=== PATIENT | female | born 1965 | race Caucasian/White ===

== ENCOUNTER 2019-04-22 09:56 | Outpatient (CLI) | payer OTHER, SELFPAY ==
--- NOTE | 2019-04-22 | EST_ITS ---
Patient Info Name: Judy Ribera Age: 53 years : 1965 Gender: Female Ht: 65 in Wt: 130 lbs BSA: 1.65 m2 Technical Quality: Good Exam Date: 04/22/2019 11:03 AM [facility] Patient Status: Outpatient Admit Date: 04/22/2019 Staff Ordering Physician: Doris Pereira MD Digital Content Producer: Conchita Beard RCS Attending Provider: JULIETA HAQUE DO Referring Physician: Kelli FAIRBANKS; Exercise Technologist: Wanda Cisneros RDCS Exercise Physician: Julieta Haque DO Exam Type: CA stress echo Study Info Indications R55 - Syncope and collapse Treadmill exercise stress echocardiogram is performed. Summary 1. 1. Negative exercise stress test for ischemic ST changes by ECG criteria. 2. 2. Good functional capacity, achieving 10 METs of workload. 3. 3. Baseline hypertension. 4. 4. Appropriate HR response to exercise. 5. 5. Appropriate HR recovery at 1 minute post exercise. 6. 6. Negative stress echocardiogram for ischemia by wall motion analysis. 7. 7. Patient informed of the above results. Stress Echo Findings Left Ventricle Appropriate increase in LV endocardial thickening with systole. Appropriate augmentation of contractility with systole. No wall motion abnormality. Left Ventricle Normal LV systolic function, no wall motin abnormality. Protocol: Stress ECG Details Stage: REST Duration (min): 1 min : 22 sec Speed (mph): 0.0 Grade (%): 0 HR (bpm): 72 SBP (mmHg): 152 DBP (mmHg): 91 METS: --- Stage: REST Duration (min): 15 min : 9 sec Speed (mph): 0.0 Grade (%): 0 HR (bpm): 80 SBP (mmHg): 152 DBP (mmHg): 91 METS: --- Stage: STAGE 1 Duration (min): 1 min : 0 sec Speed (mph): 1.7 Grade (%): 10 HR (bpm): 90 SBP (mmHg): 152 DBP (mmHg): 91 METS: --- Stage: STAGE 1 Duration (min): 2 min : 0 sec Speed (mph): 1.7 Grade (%): 10 HR (bpm): 100 SBP (mmHg): 152 DBP (mmHg): 91 METS: --- Stage: STAGE 1 Duration (min): 3 min : 0 sec Speed (mph): 1.7 Grade (%): 10 HR (bpm): 108 SBP (mmHg): 186 DBP (mmHg): 106 METS: --- Stage: STAGE 2 Duration (min): 1 min : 0 sec Speed (mph): 2.5 Grade (%): 12 HR (bpm): 114 SBP (mmHg): 186 DBP (mmHg): 106 METS: --- Stage: STAGE 2 Duration (min): 2 min : 0 sec Speed (mph): 2.5 Grade (%): 12 HR (bpm): 131 SBP (mmHg): 182 DBP (mmHg): 114 METS: --- Stage: STAGE 2 Duration (min): 3 min : 0 sec Speed (mph): 2.5 Grade (%): 12 HR (bpm): 131 SBP (mmHg): 182 DBP (mmHg): 114 METS: --- Stage: STAGE 3 Duration (min): 1 min : 0 sec Speed (mph): 3.4 Grade (%): 14 HR (bpm): 141 SBP (mmHg): 182 DBP (mmHg): 114 METS: --- Stage: STAGE 3 Duration (min): 2 min : 0 sec Speed (mph): 3.4 Grade (%): 14 HR (bpm): 140 SBP (mmHg): 182 DBP (mmHg): 114 METS: --- Stage: STAGE 3 Duration (min):
== END 2019-04-22 09:57 | disposition home or self-care (01) ==
LOC: ANHCARD 09:58
PROVIDERS: PCP Family Medicine; Visit Provider Family Medicine
DX: R55 Syncope and collapse (principal); I10 Essential (primary) hypertension
CPT/HCPCS: 93351

== ENCOUNTER 2019-12-09 23:27 | Inpatient (IN) | payer OTHER, SELFPAY ==
--- NOTE | ~2019-12-09 | CT_ITS ---
EXAMINATION: CT abdomen pelvis w con DATE: 12/10/2019 00:56 INDICATION: Generalized abdominal pain TECHNIQUE: Computed tomography (CT) of the abdomen and pelvis was performed with 100 cc Omnipaque 350 intravenous contrast. The dose-length product was 380.03 mGy-cm. Automated exposure control and iter ative reconstruction technique were employed. COMPARISON: None. FINDINGS: There is free intraperitoneal air, suspicious for bowel perforation. There is free fluid in the abdomen and pelvis. There is mild fatty infiltration and small amount of extraluminal gas in the region of the fundus of the stomach. Small hiatal hernia. Fatty infiltration of the liver. Mild bili nataly dilatation. Small low-density lesion left hepatic lobe, most likely benign cyst or hemangioma. Th e spleen, pancreas, adrenal glands and kidneys are unremarkable. Colonic diverticulosis without evide nce for diverticulitis. Cardiomegaly. Dependent atelectasis. There is degenerative spondylosis of the lower thoracic and lumbar spine. IMPRESSION: 1. Free intraperitoneal air and gas, suspicious for perforated viscus. No definite perforation site n ot identified. Reviewed, dictated and finalized at location A. IMPRESSION: 1. Free intraperitoneal air and gas, suspicious for perforated viscus. No defin ite perforation site not identified.
--- NOTE | ~2019-12-09 | XR_ITS ---
EXAMINATION: XR UGI w esoph water soluble DATE: 12/12/2019 13:29 INDICATION: Perforated gastric ulcer in the fundus of the stomach status post repair TECHNIQUE: 220 cc of water-soluble contrast were injected through the indwelling nasogastric tube. Co nventional supine abdomen radiographs and fluoroscopy of the esophagus, stomach, and proximal small b owel were performed. Fluoroscopy exposure time was 1.0 minutes. The DAP for this procedure was 16.511 Gycm2. COMPARISON: CT, 12/10/2019 FINDINGS: The esophagus is not evaluated due to the indwelling nasogastric tube. There is no hiatal h ernia. There was a small amount of spontaneous gastroesophageal reflux around the tube. The stomach a nd proximal small bowel show normal folding patterns. No extravasated contrast is identified. Surgical dale are noted. IMPRESSION: 1. No evidence of contrast leak. Reviewed, dictated and finalized at location A.
--- NOTE | 2019-12-09 23:36 | ED.ALCOHOL ---
HPI - Alcohol General Chief Complaint: Abdominal Pain Stated Complaint: abd pAin History of Present Illness HPI narrative: Sudden severe, diffuse abdominal pain this evening. Associated with nausea. She has never had this pain before. She reports worsening of GERD symptoms over the past few weeks. No fever, diarrhea, constipation. Related Data Allergies Allergy/AdvReac Type Severity Reaction Status Date / Time Penicillins Allergy Unknown Vomiting Verified 11/14/19 16:09 Review of Systems Review of Systems: All systems reviewed & are unremarkable except as noted in HPI and below Constitutional: Constitutional: Denies fever(s) Cardiovascular: Cardiovascular: Reports chest pain Respiratory: Respiratory: Reports dyspnea Gastrointestinal: Gastrointestinal: Reports abdominal pain, Denies diarrhea, Reports nausea and Denies vomiting Genitourinary: Genitourinary: Denies hematuria and Denies dysuria Musculoskeletal: Musculoskeletal: Denies back pain Neurologic: Denies dizziness and Denies weakness [facility] Past Medical History Medical History Anxiety Arthritis of carpometacarpal (CMC) joint of left thumb BMI 22.0-22.9, adult BMI 23.0-23.9, adult Essential (primary) hypertension Insomnia Osteoarthritis of right knee Other chronic pain Tobacco use Surgical History Surgical History H/O elbow surgery 2011 H/O hysterectomy for benign disease 2008 Family History Family History Father Hypertension Social History Social History Smoking packs per day: 0.5 Smoking cigarettes per day: 10.0 Years smoked: 30 Smoking pack-years: 15.00 Smoking status: Current every day smoker Tobacco type: cigarettes Second hand tobacco smoke exposure: Yes Alcohol intake: current Drinks per week: 3 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 [employer] Exam Const: General: alert Orientation/consciousness: patient oriented x3 Other: mild distress, diaphoretic HENMT: Head: normal to inspection Resp: Effort & Inspection: normal respiratory effort Auscultation: clear to auscultation bilaterally Cardio: Rate: regular rate Rhythm: regular rhythm GI: GI Palp: Yes Soft to palpation, Yes Tenderness to palpation present (GI), Yes Guarding due to palpation present (GI) and No Rebound tenderness present Skin: General skin exam: normal color Neuro: General: patient oriented x3, moves all extremities, no focal motor deficits and CN's II-XI intact bilaterally Speech: normal speech Extrem: General: normal to inspection Course Vital Signs Vital signs: Vital Signs Temperature 37.1 C 12/09/19 23:38 Pulse Rate 110 H 12/09/19 23:38 Respiratory Rate 20 12/09/19 23:38 Blood Pressure 181/120 H 12/09/19 23:38 Pulse Oximetry 98 12/09/19 23:38 Temperature 37.1 C 12/09/19 23:38 Pulse Rate 104 H 12/10/19 02:37 Respiratory Rate 20 12/10/19 02:37 Blood Pressure 175/106 H 12/10/19 02:37 Pulse Oximetry 96 12/10/19 02:37 MDM - Alcohol MDM Narrative Medical decision making narrative: After [address] was finally read as free air from likely perforated viscous. Antibiotics ordered. Dr. Simons consulted and he will take her to surgery. Medical Records Attestation: I reviewed the patient's medical records. Lab Data Attestation: I reviewed the patient's lab results. Result diagrams: 12/09/19 23:50 12/09/19 23:50 Labs: Lab Results 12/09/19 12/09/19 12/09/19 Range/Units 23:50 23:50 23:50 WBC 17.4 H (4.5-10.0) K/mm3 RBC 5.42 H (4.2-5.4) M/mm3 Hgb 17.1 H (12.0-15.0) g/dL Hct 50.3 H (37.0-47.0) % MCV 92.8 (80-100) fl MCH 31.5 (26-34) pg MCHC 34.0 (32-36) g/dl RDW 12.6 (11.5-14.5) % Plt Count 481 H (150-375)
[2019-12-09 23:38] VITALS: BP 181/120; PULSE 110; RESP 20; TEMP 37.1; O2SAT 98
[2019-12-10] VITALS (17 sets, daily range): BP systolic 112–176; BP diastolic 57–110; PULSE 69–104; RESP 16–30; TEMP 36.4–37.4; O2SAT 92–100
[2019-12-10 00:15] LABS: Basophils Absolute Auto 0.1 K/mm3 (0.0-0.1); Basophils Percent Auto 0.6 % (0.2-1.2); Eosinophils Absolute Auto 0.4 K/mm3 (0-0.3); Eosinophils Percent Auto 2.2 % (0-4.4); Hematocrit 50.3 % (37.0-47.0); Hemoglobin 17.1 g/dL (12.0-15.0); Immature Granulocyte Absolute 0.06 K/mm3 (0.00-0.031); Immature Granulocyte Percent A 0.3 % (0-0.5); Lymphocytes Absolute Auto 3.25 K/mm3 (0.9-3.2); Lymphocytes Percent Auto 18.7 % (18.3-44.2); Mean Corpuscular Hemoglobin 31.5 pg (26-34); Mean Corpuscular Volume 92.8 fl (80-100); Mean Platelet Volume 10.1 fl (7.4-10.4); Monocytes Absolute Auto 0.6 K/mm3 (0.1-0.6); Monocytes Percent Auto 3.5 % (2.6-8.5); Neutrophils Percent Auto 74.7 % (45.5-73.1); Platelet Count Result 481 k/mm3 (150-375); Red Blood Count 5.42 M/mm3 (4.2-5.4); Red Cell Distribution Width 12.6 % (11.5-14.5); White Blood Count 17.4 K/mm3 (4.5-10.0)
[2019-12-10] MEDS: fentaNYL CITRATE INJ (*CRX) 100 MCG/2 ML VIAL 50 MCG IV PUSH (00:15)
[2019-12-10] MEDS: SODIUM CHLORIDE 0.9% IV 1,000 ML 999 ML IV CONT (00:16)
[2019-12-10] MEDS: PANTOPRAZOLE SODIUM IV 40 MG VIAL IV PUSH ×3 (00:16→20:41)
[2019-12-10 00:21] LABS: INR 0.9; Prothrombin Time 12.2 Seconds (11.1-14.7)
[2019-12-10 00:32] LABS: Alanine Aminotransferase 20 U/L (4-35); Albumin Level 5.1 g/dL (3.5-5.1); Alkaline Phosphatase 96 U/L (38-126); Anion Gap 13 mmol/L (8-16); Aspartate Amino Transferase 31 U/L (14-36); Bilirubin,Total 0.3 mg/dL (0.2-1.3); Blood Urea Nitrogen 11 mg/dL (7-17); Calcium 10.8 mg/dL (8.4-10.2); Carbon Dioxide 27 mmol/L (22-30); Chloride 105 mmol/L (98-107); Estimated CRCL calculation 66 ml/min; Estimated Glomerular Filt Rate > 60; Glucose 126 mg/dL (65-105); Lipase 179 U/L (23-300); Potassium 3.4 mmol/L (3.4-5.0); Sodium 145 mmol/L (137-145)
--- NOTE | 2019-12-10 00:35 | ECG_ITS ---
Measurements Intervals [place] Rate: 84 P: 39 [place]: 149 QRS: -9 QRSD: 105 T: 34 QT: 375 QTc: 445 Interpretive Statements SINUS RHYTHM INCOMPLETE RIGHT BUNDLE BRANCH BLOCK BASELINE ARTIFACT- I, II, III, AVR, AVL, AVF, V4-V6 BORDERLINE ECG Electronically Signed On 12-10-2019 7:39:42 CDT by Hector Rosa D.O.
[2019-12-10 00:44] LABS: Troponin I < 0.012 ng/mL (0.000-0.034)
[2019-12-10] MEDS: DICYCLOMINE HCL INJ 20 MG/2 ML VIAL IM (00:59)
[2019-12-10] MEDS: MORPHINE SULFATE (*CRX) 4 MG/ML INJ IV PUSH (01:18)
[2019-12-10 02:03] LABS: Add Urine Microscopic? NO; Appearance Urine Clear (Clear); Bilirubin Urine Negative (Negative); Blood Urine Negative (Negative); Color Urine Straw (Yellow); Glucose Urine UA Negative (Negative); Ketones Urine Negative (Negative); Leukocyte Esterase Ur Negative LEU/UL (Negative); Mucus Urine Rare /lpf; Nitrate Urine Negative (Negative); Protein Urine Negative (Negative); Specific Grav Ur 1.024 (1.001-1.035); Urobilinogen Urine Negative mg/dL (<2.0); WBC Urine 0-3 /hpf
--- NOTE | 2019-12-10 02:25 | WPDANESEPP ---
Anes - Eval Pre Procedure Procedure: exploratory laparotomy Date/Time: 12/10/19 02:25 Surgeon: Ronak Preop Diagnosis: Free air in abdomen Pre Op Diagnosis: abd pAin Patient Data Age: 53 Gender: F Height: 5 ft 6 in Weight: 75 kg Last Vital Signs Temp 98.7 F 12/09/19 23:38 Pulse 103 H 12/10/19 01:29 Resp 18 12/10/19 01:29 BP 176/108 H 12/10/19 01:29 Pulse Ox 96 12/10/19 01:29 Allergies Allergy/AdvReac Type Severity Reaction Status Date / Time Penicillins Allergy Unknown Vomiting Verified 11/14/19 16:09 Home Medications Medication Instructions Recorded Confirmed Type lisinopril 20 mg tablet 20 mg PO DAILY #90 tablet 09/30/19 Rx hydroxyzine HCl 25 mg tablet 25 mg PO BID PRN #60 tablet 11/14/19 11/14/19 Rx meloxicam 15 mg tablet 15 mg PO DAILY #30 tablet 11/14/19 11/14/19 Rx trazodone 50 mg tablet 25 mg PO .QHS #30 tablet 11/14/19 11/14/19 Rx Laboratory Tests 12/09/19 12/09/19 12/09/19 23:50 23:50 23:50 WBC 17.4 K/mm3 H K/mm3 (4.5-10.0) RBC 5.42 M/mm3 H M/mm3 (4.2-5.4) Hgb 17.1 g/dL H g/dL (12.0-15.0) Hct 50.3 % H % (37.0-47.0) MCV 92.8 fl fl (80-100) MCH 31.5 pg pg (26-34) MCHC 34.0 g/dl g/dl (32-36) RDW 12.6 % % (11.5-14.5) Plt Count 481 k/mm3 H k/mm3 (150-375) MPV 10.1 fl fl (7.4-10.4) Immature Gran % (Auto) 0.3 % % (0-0.5) Neut % (Auto) 74.7 % H % (45.5-73.1) Lymph % (Auto) 18.7 % % (18.3-44.2) [place] % (Auto) 3.5 % % (2.6-8.5) Eos % (Auto) 2.2 % % (0-4.4) Baso % (Auto) 0.6 % % (0.2-1.2) Lymph # (Auto) 3.25 K/mm3 H K/mm3 (0.9-3.2) [place] # (Auto) 0.6 K/mm3 K/mm3 (0.1-0.6) Eos # (Auto) 0.4 K/mm3 H K/mm3 (0-0.3) Baso # (Auto) 0.1 K/mm3 K/mm3 (0.0-0.1) Abs Immat Gran (auto) 0.06 K/mm3 H K/mm3 (0.00-0.031) Absolute Neuts (auto) 13.0 K/mm3 H K/mm3 (1.3-6.7) Absolute Nucleated RBC 0.0 K/mm3 K/mm3 (0.0-0.012) Nucleated RBC % 0.0 % % (0.0-0.2) PT 12.2 Seconds Seconds (11.1-14.7) INR 0.9 APTT 26.0 SECONDS SECONDS (22.3-36.8) Sodium 145 mmol/L mmol/L (137-145) Potassium 3.4 mmol/L mmol/L (3.4-5.0) Chloride 105 mmol/L mmol/L (98-107) Carbon Dioxide 27 mmol/L mmol/L (22-30) Anion Gap 13 mmol/L mmol/L (8-16) BUN 11 mg/dL mg/dL (7-17) Creatinine 0.80 mg/dL mg/dL (0.7-1.0) Estim Creat Clear Calc 66 ml/min ml/min Estimated GFR > 60 (59 - ) Glucose 126 mg/dL H mg/dL (65-105) Calcium 10.8 mg/dL H mg/dL (8.4-10.2) Total Bilirubin 0.3 mg/dL mg/dL (0.2-1.3) AST 31 U/L U/L (14-36) ALT 20 U/L U/L (4-35) Alkaline Phosphatase 96 U/L U/L (38-126) Troponin I < 0.012 ng/mL ng/mL (0.000-0.034) Total Protein 8.0 g/dL g/dL (6.3-8.2) Albumin 5.1 g/dL g/dL (3.5-5.1) Lipase 179 U/L U/L (23-300) Urine Color Urine Appearance Urine pH Ur Specific [place] Urine Protein Urine Glucose (UA) Urine Ketones Ur Blood (Man) Urine Nitrate Urine Bilirubin Urine Urobilinogen Leukocyte Esterase Rfl Urine WBC Urine Mucus 12/10/19 01:27 WBC RBC Hgb Hct MCV MCH MCHC RDW Plt Count MPV Immature Gran % (Auto) Neut % (Auto) Lymph % (Auto) [place] % (Auto) Eos % (Auto) Baso % (Auto) Lymph # (Auto) [place] # (Auto) Eos # (Auto) Baso # (Auto) Abs Immat Gran (auto) Absolute Neuts (auto) Absolute Nuc
--- NOTE | 2019-12-10 02:53 | PM.IMHP ---
H&P: HPI History of Present Illness Date/Time: 12/10/19 02:53 Chief complaint: abd pAin Narrative: Judy Ribera is a 53 year old female presenting to ED c/o acute, severe abd pain starting around 11 pm tonight. Pt reports pain is sharp, stabbing, constant, severe. Pt reports she has been having some heartburn sx over the last couple of wks including bloating, acid reflux. Review of Systems Constitutional: Constitutional: Denies anorexia, Denies chills, Denies fatigue, Denies fever(s), Denies headache(s), Denies lethargy, Denies malaise, Denies poor appetite, Denies weakness, Denies weight gain and Denies weight loss Eyes: Eyes: Denies no additional eye complaints ENT: Reports Normal hearing present Cardiovascular: Cardiovascular: Reports no additional cardiovascular complaints Respiratory: Respiratory: Reports no additional respiratory complaints Gastrointestinal: Gastrointestinal: Reports abdominal pain, Reports bloating, Denies change in bowel habits, Reports dyspepsia, Reports heartburn, Denies diarrhea, Denies nausea and Denies vomiting Genitourinary: Genitourinary: Reports no additional female genitourinary complaints Musculoskeletal: Musculoskeletal: Reports no additional musculoskeletal complaints Integumentary/Breasts: Skin/Breast: Reports system reviewed and no additional complaints, except as docu Neurologic: Reports system reviewed and no additional complaints, except as documented Psychiatric: Psychiatric: Reports no additional psychiatric complaints Endocrine: Endocrine: Reports no additional endocrine complaints Hematologic/Lymphatic: Hematologic/Lymphatic: Reports no additional hematologic/lymphatic complaints Allergic/Immunologic: Allergic/Immunologic: Reports no additional allergic/immunologic complaints PMFSH Past Medical History Medical History Anxiety Arthritis of carpometacarpal (CMC) joint of left thumb BMI 22.0-22.9, adult BMI 23.0-23.9, adult Essential (primary) hypertension Insomnia Osteoarthritis of right knee Other chronic pain Tobacco use Surgical History Surgical History H/O elbow surgery 2011 H/O hysterectomy for benign disease 2007 Family History Family History Father Hypertension Social History Social History Smoking packs per day: 0.5 Smoking cigarettes per day: 10.0 Years smoked: 30 Smoking pack-years: 15.00 Smoking status: Current every day smoker Tobacco type: cigarettes Second hand tobacco smoke exposure: Yes Alcohol intake: current Drinks per week: 3 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 [employer] Home Medications and Allergies Home Medications Medication Instructions Recorded Confirmed Type lisinopril 20 mg tablet 20 mg PO DAILY #90 tablet 09/30/19 Rx hydroxyzine HCl 25 mg tablet 25 mg PO BID PRN #60 tablet 11/14/19 11/14/19 Rx meloxicam 15 mg tablet 15 mg PO DAILY #30 tablet 11/14/19 11/14/19 Rx trazodone 50 mg tablet 25 mg PO .QHS #30 tablet 11/14/19 11/14/19 Rx Allergies Allergy/AdvReac Type Severity Reaction Status Date / Time Penicillins Allergy Unknown Vomiting Verified 11/14/19 16:09 Vital Signs Vital Signs - 24 hr 12/09/19 23:38 12/10/19 01:29 12/10/19 02:37 Temperature 37.1 C Pulse Rate 110 H 103 H 104 H Respiratory Rate 20 18 20 Blood Pressure 181/120 H 176/108 H 175/106 H Pulse Oximetry 98 96 96 Exam Const: General: cooperative, healthy appearing, alert, awake and acute distress moderate Nutritional Appearance: average body habitus Orientation/consciousness: oriented to person, oriented to place and oriented to time Limitations: no limitations HENMT: Head: normal to inspection, normocephalic and atraumatic Ears: hearing grossly normal bilaterally Mouth: Yes moist mucous membranes abnor
--- NOTE | 2019-12-10 02:57 | PC.NURSE ---
dr. salas @ bedside, awaiting or
--- NOTE | 2019-12-10 03:22 | WPDANESEFPP ---
Anes - Eval Final PreProcedure Day of Procedure 12/10/19 03:22 Patient weight: overweight Heart: regular rate and rhythm Lungs: decreased breath sounds Airway: Mallampati scale class II Neurological: alert and oriented Last oral intake: >/= 8 hours ASA classification: III Emergent: no Anesthetic plan: proceed Anesthesia type and monitoring: general Informed Consent: The patient's anesthetic plan and its attendant risks and benefits were discussed with the patient/family/POA. Questions were solicited and answers provided to the satisfaction of the patient/family/POA.
[2019-12-10] MEDS: metroNIDAZOLE 500 MG/ISO 100ML 500 MG/100 ML BAG 100 MG IVPB ×4 (03:37→21:01)
[2019-12-10] MEDS: LACTATED RINGERS 1,000 ML 30 ML IV CONT (04:18)
--- NOTE | 2019-12-10 04:18 | P.OP_ITS ---
Procedure Note - Detailed Date of procedure: 12/10/19 Pre-op diagnosis: Perforated Abdominal Viscous Post-op diagnosis: other (Perforated gastric ulcer) Procedure performed: Exploratory laparotomy, repair of perforated gastric ulcer with omental patch Description of procedure: The patient was taken to the operating room and placed in the supine position. After adequate induction of general anesthesia, the patient was prepped and draped in the normal sterile fashion. A time-out was then done to verify the patient's identity, as well as the procedure being performed. I began by making an upper midline incision. This incision was take n down into the peritoneal cavity. Upon entering the peritoneal cavity, there was noted to be a hager of air as well as what looked to be gastric succus. After this was suctioned out, I began examining the upper abdomen. I was able to free up the stomach after some dissection. I was able to locate a perforation in the fundus of the stomach anteriorly. Once the perforation was identified, I primarily closed the perforation with interrupted 3 0 silk sutures. I then created a tongue of omentum and placed this omental patch over the area of the perforation. I then was able to palpate the NG tube and had this placed near the area of the perforation. We then placed approximately 50 cc of normal saline with methylene blue into the NG tube. The stomach was noted to be distended and no leakage of the methylene blue was noted. At this point this fluid was suctioned back out through the NG tube. I then copiously irrigated the abdomen, examination revealed no other pathology. I then closed the fascia with looped 0 PDS suture. The skin was then closed with skin dale. The patient tolerated the procedure well and was extubated in the operating room postoperatively. She will be sent to the recovery room in stable condition. Implants: None Anesthesia: GETA Surgeon: Ania Simons MD Estimated blood loss (mL): 10 Drains: No Packing: No Pathology: none sent Complications: No immediate complications Condition: stable Disposition: PACU Findings: Perforated gastric ulcer
[2019-12-10] MEDS: fentaNYL CITRATE INJ (*CRX) 100 MCG/2 ML VIAL 25 MCG IV PUSH ×7 (04:22→05:15)
--- NOTE | 2019-12-10 04:44 | SUR.PHASEI ---
0418; PT INTO PACU PER BED. STARTING TO MOAN. ORAL AIRWAY REMOVED UPON ARRIVAL. HOB ELEVATED 30 DEGREES. KNEES FLEXED 15 DEGREES. PT C/O EXTREME PAIN. RUBBING ABDOMEN. MARY KAY FRENCH GIVING IV FENTANYL. NG TAPED AT 65 ADAIR, CONFIRMED BY DR MASON IN OR PER MARY KAY FRENCH. PLACED NG TO CONTINUOUS LOW WALL SUCTION. 0445; PT RESTING QUIETLY NOW. ABLE TO DOZE IN INTERVALS.
--- NOTE | 2019-12-10 05:24 | SUR.PHASEI ---
PT ABLE TO DOZE INTERMITTENTLY. STATES PAIN MODERATE TO SEVERE, COMES AND GOES . PT FLACC OF 0. LOOKS MUCH MORE COMFORTABLE. ABDOMEN REMAINS SOFT. LESS GUARDING. HOB AT 30 DEGREES. RESP EVEN UNLABORED. REPORT FAXED TO [facility].
--- NOTE | 2019-12-10 06:08 | ADMGEN ---
This patient, Judy Ribera, was admitted to Medical Room 347-. Patient/family oriented to hospital policies and general routines including ID bracelet, bed and alarms, visiting hours, pain management, procedures, bathroom and other care routines, personal items, smoking policy, room service/diet, and visiting hours. Valuables list has been completed. Information on how to activate the Rapid Response Team has been discussed. Patient/Family are encouraged to report perceived risks to care and to ask questions if they do not understand what they are told or what they should do.
[2019-12-10 07:53] LABS: Anion Gap 7 mmol/L (8-16); Blood Urea Nitrogen 12 mg/dL (7-17); Calcium 8.7 mg/dL (8.4-10.2); Carbon Dioxide 27 mmol/L (22-30); Chloride 106 mmol/L (98-107); Estimated CRCL calculation 75 ml/min; Estimated Glomerular Filt Rate > 60; Glucose 134 mg/dL (65-105); Potassium 3.9 mmol/L (3.4-5.0); Sodium 140 mmol/L (137-145)
[2019-12-10 08:00] LABS: Hemoglobin 13.1 g/dL (12.0-15.0); Mean Corpuscular HGB Conc 33.6 g/dl (32-36); Mean Corpuscular Hemoglobin 30.9 pg (26-34); Mean Platelet Volume 9.9 fl (7.4-10.4); Platelet Count Result 348 k/mm3 (150-375); Red Blood Count 4.24 M/mm3 (4.2-5.4); Red Cell Distribution Width 12.3 % (11.5-14.5); White Blood Count 17.8 K/mm3 (4.5-10.0)
[2019-12-10] MEDS: MORPHINE SULFATE (*CRX) 2 MG/ML INJ IV PUSH ×4 (08:07→21:32)
[2019-12-10] MEDS: LACTATED RINGERS 1,000 ML 100 ML IV CONT ×2 (08:18→22:04)
--- NOTE | 2019-12-10 12:39 | PC.NURSE ---
Call placed to Pharmacy for the 2nd time about meds not being in the pixsis and having to override to pull out meds.
--- NOTE | 2019-12-10 22:00 | PC.NURSE ---
Call placed to pharmacy about meds not being in the pixsis and having to override to pull out meds.
[2019-12-11] VITALS (9 sets, daily range): BP systolic 165–181; BP diastolic 80–101; PULSE 67–90; RESP 14–18; TEMP 36.5–37.2; O2SAT 92–98
[2019-12-11] MEDS: MORPHINE SULFATE (*CRX) 2 MG/ML INJ IV PUSH ×4 (01:44→21:10)
[2019-12-11] MEDS: metroNIDAZOLE 500 MG/ISO 100ML 500 MG/100 ML BAG 100 MG IVPB ×4 (04:46→21:07)
[2019-12-11 05:34] LABS: Hematocrit 35.2 % (37.0-47.0); Hemoglobin 11.7 g/dL (12.0-15.0); Mean Corpuscular HGB Conc 33.2 g/dl (32-36); Mean Corpuscular Hemoglobin 30.9 pg (26-34); Mean Corpuscular Volume 92.9 fl (80-100); Mean Platelet Volume 9.9 fl (7.4-10.4); Platelet Count Result 298 k/mm3 (150-375); Red Blood Count 3.79 M/mm3 (4.2-5.4); Red Cell Distribution Width 12.5 % (11.5-14.5); White Blood Count 11.1 K/mm3 (4.5-10.0)
[2019-12-11 06:04] LABS: Anion Gap 5 mmol/L (8-16); Blood Urea Nitrogen 18 mg/dL (7-17); Calcium 8.6 mg/dL (8.4-10.2); Carbon Dioxide 28 mmol/L (22-30); Chloride 106 mmol/L (98-107); Estimated CRCL calculation 66 ml/min; Estimated Glomerular Filt Rate > 60; Glucose 95 mg/dL (65-105); Potassium 3.6 mmol/L (3.4-5.0); Sodium 139 mmol/L (137-145)
--- NOTE | 2019-12-11 08:51 | WPDANESPN ---
Anes - Prog Note Post-Op Date/Time: 12/11/19 08:51 Cardiovascular status: normal Respiratory status: normal Airway patency: baseline Mental status: baseline Post-Op hydration status: normal (NG in place) Vital Signs: Last Vital Signs Temp 36.5 C 12/11/19 05:29 Pulse 78 12/11/19 05:29 Resp 16 12/11/19 05:29 BP 176/87 H 12/11/19 05:29 Pulse Ox 98 12/11/19 05:29 Pain Score (VAS): 3 I/O: Intake & Output 12/10/19 12/11/19 12/11/19 23:59 07:59 15:59 Intake Total 906 833 Output Total 70 190 Balance 836 643 Laboratory Tests 12/11/19 05:00 12/11/19 05:00 12/11/19 12/11/19 05:00 05:00 WBC 11.1 H RBC 3.79 L Hgb 11.7 L Hct 35.2 L MCV 92.9 MCH 30.9 MCHC 33.2 RDW 12.5 Plt Count 298 MPV 9.9 Sodium 139 Potassium 3.6 Chloride 106 Carbon Dioxide 28 Anion Gap 5 L BUN 18 H Creatinine 0.80 Estim Creat Clear Calc 66 Estimated GFR > 60 Glucose 95 Calcium 8.6 Patient Feedback: Patient satisfied with anesthetic care.
[2019-12-11] MEDS: PANTOPRAZOLE SODIUM IV 40 MG VIAL IV PUSH ×2 (08:54→20:52)
[2019-12-11] MEDS: LACTATED RINGERS 1,000 ML 100 ML IV CONT ×2 (10:49→23:17)
[2019-12-11] MEDS: hydrALAZINE HCL 20 MG/ML VIAL 10 MG IV PUSH ×2 (10:50→16:59)
--- NOTE | 2019-12-11 11:38 | PM.PNGS ---
Progress Note: A&P Assessment and Plan (1) Perforated gastric ulcer: Code(s): K25.5 - Chronic or unspecified gastric ulcer with perforation Status: Acute Assessment and Plan: doing well, cont NG decompression, bowel rest, cont PPI, abx, dc ocasio, OOB/IS (2) Essential hypertension: Code(s): I10 - Essential (primary) hypertension Status: Acute Assessment and Plan: start Hydralysine prn Subjective Subjective Date/Time Seen: 12/11/19 11:38 feels better, some moderate incisional soreness Review of Systems Constitutional: Constitutional: Denies chills, Denies fever(s) and Reports weakness Cardiovascular: Cardiovascular: Reports no additional cardiovascular complaints Respiratory: Respiratory: Reports no additional respiratory complaints Gastrointestinal: Gastrointestinal: Reports abdominal pain, Denies nausea and Denies vomiting Exam Const: General: cooperative, comfortable and no acute distress Resp: Auscultation: clear to auscultation bilaterally Cardio: Rate: regular rate Rhythm: regular rhythm GI: Other: soft, sl dist, kalpesh TTP, incision C/D/I Objective Data Vital Signs Vital Signs: Vital Signs - 24 hr 12/10/19 12:03 12/10/19 17:56 12/10/19 20:03 Temperature 36.7 C 37.4 C 36.4 C Pulse Rate 74 78 69 Respiratory Rate 16 18 18 Blood Pressure 133/74 148/89 H 137/70 Pulse Oximetry 99 98 99 12/11/19 00:03 12/11/19 05:29 12/11/19 10:00 Temperature 37.0 C 36.5 C 36.6 C Pulse Rate 67 78 76 Respiratory Rate 16 16 18 Blood Pressure 168/81 H 176/87 H 181/101 H Pulse Oximetry 92 98 97 Intake/Output Intake/Output: Intake & Output 12/08/19 12/09/19 12/10/19 12/11/19 23:59 23:59 23:59 23:59 Intake Total 2746 1350 Output Total 215 1040 Balance 2531 310 Meds/Results Medications: Active Medications Generic Name Dose Route Start Last Admin Trade Name Freq PRN Reason Stop Dose Admin Hydralazine HCl 10 mg 12/11/19 10:32 12/11/19 10:50 Hydralazine Hcl 20 Mg/Ml Vial IV PUSH 10 mg Q6H PRN Administration Blood Pressure - High Levofloxacin/Dextrose 750 mg in 150 mls @ 100 mls/hr 12/11/19 03:00 12/11/19 04:36 Levaquin 750 Mg/D5w 150 Ml IVPB Infused Q24H ROBERTO Infusion Metronidazole 500 mg in 100 mls @ 100 mls/hr 12/10/19 10:00 12/11/19 10:07 Flagyl 500 Mg/Iso Soln 100 Ml IVPB Infused Q6H ROBERTO Infusion Lactated Ringer's 1,000 mls @ 100 mls/hr 12/10/19 12:35 12/11/19 10:49 Lr - Lactated Ringers Iv IV CONT 100 mls/hr .Q10H ROBERTO Administration Morphine Sulfate 2 mg 12/10/19 12:32 12/11/19 09:55 Morphine Sulfate (*Crx) 2 Mg/Ml Inj IV PUSH 2 mg Q4H PRN Administration Pain Rated 7-10 Ondansetron HCl 4 mg 12/10/19 12:32 Ondansetron Inj 4 Mg/2 Ml Vial IV PUSH Q4H PRN Nausea And Vomiting Pantoprazole Sodium 40 mg 12/10/19 09:00 12/11/19 08:54 Pantoprazole Sodium Iv 40 Mg Vial IV PUSH 40 mg Q12HR ROBERTO Administration Radiology Results: ITS Impressions Abdomen/Pelvis CT 12/10/19 08:15 IMPRESSION: 1. Free intraperitoneal air and gas, suspicious for perforated viscus. No definite perforation site not identified. Labs Labs: Laboratory Results - last 24 hr 12/11/19 12/11/19 05:00 05:00 WBC 11.1 H RBC 3.79 L Hgb 11.7 L Hct 35.2 L MCV 92.9 MCH 30.9 MCHC 33.2 RDW 12.5 Plt Count 298 MPV 9.9 Sodium 139 Potassium 3.6 Chloride 106 Carbon Dioxide 28 Anion Gap 5 L BUN 18 H Creatinine 0.80 Estim Creat Clear Calc 66 Estimated GFR > 60 Glucose 95 Calcium 8.6
[2019-12-11] MEDS: ONDANSETRON INJ 4 MG/2 ML VIAL IV PUSH (19:33)
[2019-12-12 03:08] VITALS: BP 170/97; PULSE 78; RESP 14; TEMP 36.7; O2SAT 97
[2019-12-12] MEDS: hydrALAZINE HCL 20 MG/ML VIAL 10 MG IV PUSH ×2 (03:14→15:27)
[2019-12-12] MEDS: metroNIDAZOLE 500 MG/ISO 100ML 500 MG/100 ML BAG 100 MG IVPB ×4 (04:54→21:48)
[2019-12-12 06:09] LABS: Hematocrit 38.2 % (37.0-47.0); Hemoglobin 12.9 g/dL (12.0-15.0); Mean Corpuscular HGB Conc 33.8 g/dl (32-36); Mean Corpuscular Hemoglobin 31.3 pg (26-34); Mean Corpuscular Volume 92.7 fl (80-100); Platelet Count Result 321 k/mm3 (150-375); Red Blood Count 4.12 M/mm3 (4.2-5.4); Red Cell Distribution Width 12.4 % (11.5-14.5); White Blood Count 11.7 K/mm3 (4.5-10.0)
[2019-12-12 06:21] LABS: Anion Gap 11 mmol/L (8-16); Blood Urea Nitrogen 14 mg/dL (7-17); Calcium 8.6 mg/dL (8.4-10.2); Carbon Dioxide 23 mmol/L (22-30); Chloride 103 mmol/L (98-107); Estimated CRCL calculation 75 ml/min; Estimated Glomerular Filt Rate > 60; Glucose 85 mg/dL (65-105); Potassium 3.3 mmol/L (3.4-5.0); Sodium 137 mmol/L (137-145)
[2019-12-12 06:46] VITALS: BP 163/93; PULSE 88
[2019-12-12] MEDS: MORPHINE SULFATE (*CRX) 2 MG/ML INJ IV PUSH (06:47)
[2019-12-12] MEDS: PANTOPRAZOLE SODIUM IV 40 MG VIAL IV PUSH ×2 (09:33→21:42)
--- NOTE | 2019-12-12 11:56 | PM.PNGS ---
Progress Note: A&P Assessment and Plan (1) Perforated gastric ulcer: Code(s): K25.5 - Chronic or unspecified gastric ulcer with perforation Status: Acute Assessment and Plan: doing well, will get UGI to eval repair, if no leak will remove NG and start clears, cont PPI, abx (2) Essential hypertension: Code(s): I10 - Essential (primary) hypertension Status: Acute Assessment and Plan: stable, cont Hydralysine Subjective Subjective Date/Time Seen: 12/12/19 11:56 feels good, hungry, +flatus, incisional soreness Review of Systems Constitutional: Constitutional: Denies chills, Denies fatigue, Denies fever(s) and Denies lethargy Cardiovascular: Cardiovascular: Denies no additional cardiovascular complaints Respiratory: Respiratory: Denies no additional respiratory complaints Gastrointestinal: Gastrointestinal: Reports abdominal pain, Denies belching, Denies bloating, Denies nausea and Denies vomiting Exam Const: General: comfortable and no acute distress Resp: Auscultation: clear to auscultation bilaterally Cardio: Rate: regular rate Rhythm: regular rhythm GI: Inspection: normal to inspection, distended and incision GI Palp: Yes abdominal tenderness, Yes Soft to palpation, No Firmness to palpation present (GI), Yes Tenderness to palpation present (GI) and No Guarding due to palpation present (GI) Other: soft, sl dist, kalpesh TTP, incision C/D/I Objective Data Vital Signs Vital Signs: Vital Signs - 24 hr 12/11/19 12:00 12/11/19 14:00 12/11/19 16:57 Temperature 37.0 C Pulse Rate 82 88 Respiratory Rate 18 Blood Pressure 181/80 H 165/85 H 170/92 H Pulse Oximetry 93 12/11/19 18:00 12/11/19 19:51 12/11/19 20:53 Temperature 37.2 C 37.1 C Pulse Rate 88 90 Respiratory Rate 18 14 Blood Pressure 179/90 H 168/90 H Pulse Oximetry 95 92 93 12/12/19 03:08 12/12/19 06:46 Temperature 36.7 C Pulse Rate 78 88 Respiratory Rate 14 Blood Pressure 170/97 H 163/93 H Pulse Oximetry 97 Intake/Output Intake/Output: Intake & Output 12/09/19 12/10/19 12/11/19 12/12/19 23:59 23:59 23:59 23:59 Intake Total 2746 2550 651 Output Total 215 1530 210 Balance 2531 1020 441 Meds/Results Medications: Active Medications Generic Name Dose Route Start Last Admin Trade Name Freq PRN Reason Stop Dose Admin Hydralazine HCl 10 mg 12/11/19 10:32 12/12/19 03:14 Hydralazine Hcl 20 Mg/Ml Vial IV PUSH 10 mg Q6H PRN Administration Blood Pressure - High Levofloxacin/Dextrose 750 mg in 150 mls @ 100 mls/hr 12/11/19 03:00 12/12/19 04:48 Levaquin 750 Mg/D5w 150 Ml IVPB Infused Q24H ROBERTO Infusion Metronidazole 500 mg in 100 mls @ 100 mls/hr 12/10/19 10:00 12/12/19 10:26 Flagyl 500 Mg/Iso Soln 100 Ml IVPB 100 mls/hr Q6H ROBERTO Administration Lactated Ringer's 1,000 mls @ 100 mls/hr 12/10/19 12:35 12/12/19 05:04 Lr - Lactated Ringers Iv IV CONT 100 mls/hr .Q10H ROBERTO Infusion Morphine Sulfate 2 mg 12/10/19 12:32 12/12/19 06:47 Morphine Sulfate (*Crx) 2 Mg/Ml Inj IV PUSH 2 mg Q4H PRN Administration Pain Rated 7-10 Ondansetron HCl 4 mg 12/10/19 12:32 12/11/19 19:33 Ondansetron Inj 4 Mg/2 Ml Vial IV PUSH 4 mg Q4H PRN Administration Nausea And Vomiting Pantoprazole Sodium 40 mg 12/10/19 09:00 12/12/19 09:33 Pantoprazole Sodium Iv 40 Mg Vial IV PUSH 40 mg Q12HR ROBERTO Administration Radiology Results: ITS Impressions Abdomen/Pelvis CT 12/10/19 08:15 IMPRESSION: 1. Free intraperitoneal air and gas, suspicious for perforated viscus. No definite perforation site not identified. Labs Labs: Laboratory Results - last 24 hr 12/12/19 12/12/19 05:32 05:32 WBC 11.7 H RBC 4.12 L Hgb 12.9 Hct 38.2 MCV 92.7 MCH 31.3 MCHC 33.8 RDW 12.4 Plt Count 321 MPV 10.0 Sodium 137 Potassium 3.3 L Chloride 103 Carbon Dioxide 23 Anion Gap 11 BUN 14 Creatinine
[2019-12-12] MEDS: ONDANSETRON INJ 4 MG/2 ML VIAL IV PUSH ×2 (13:39→13:42)
[2019-12-12] MEDS: LACTATED RINGERS 1,000 ML 100 ML IV CONT (13:41)
[2019-12-12 14:59] VITALS: BP 188/98; PULSE 84; RESP 16; TEMP 37; O2SAT 95
[2019-12-12 17:29] VITALS: BP 150/83
[2019-12-12 19:57] VITALS: BP 153/92; PULSE 88; RESP 16; TEMP 36.6; O2SAT 100
[2019-12-13 04:24] VITALS: BP 175/99; PULSE 78; RESP 16; TEMP 36.8; O2SAT 97
[2019-12-13] MEDS: hydrALAZINE HCL 20 MG/ML VIAL 10 MG IV PUSH (04:29)
[2019-12-13] MEDS: metroNIDAZOLE 500 MG/ISO 100ML 500 MG/100 ML BAG 100 MG IVPB ×3 (04:33→16:25)
[2019-12-13] MEDS: ONDANSETRON INJ 4 MG/2 ML VIAL IV PUSH (04:49)
[2019-12-13 06:35] VITALS: BP 127/90
--- NOTE | 2019-12-13 08:30 | PM.PNGS ---
Progress Note: A&P Assessment and Plan (1) Perforated gastric ulcer: Code(s): K25.5 - Chronic or unspecified gastric ulcer with perforation Status: Acute Assessment and Plan: doing well, ADAT, cont PPI, start carafate, poss home soon (2) Essential hypertension: Code(s): I10 - Essential (primary) hypertension Status: Acute Assessment and Plan: restart home meds Subjective Subjective Date/Time Seen: 12/13/19 08:30 Pt feels good, melissa clears, +bowel fxn Review of Systems Constitutional: Constitutional: Denies chills, Denies fever(s) and Reports weakness Cardiovascular: Cardiovascular: Reports no additional cardiovascular complaints Respiratory: Respiratory: Reports no additional respiratory complaints Gastrointestinal: Gastrointestinal: Reports abdominal pain, Denies bloating, Denies nausea and Denies vomiting Exam Const: General: no acute distress Orientation/consciousness: patient oriented x3 Resp: Auscultation: clear to auscultation bilaterally Cardio: Rate: regular rate Rhythm: regular rhythm GI: Inspection: non-distended and incision GI Palp: Yes abdominal tenderness, Yes Soft to palpation, No Tenderness to palpation present (GI) and No Guarding due to palpation present (GI) Auscultation: normal bowel sounds Other: soft, sl dist, kalpesh TTP, incision C/D/I Objective Data Vital Signs Vital Signs: Vital Signs - 24 hr 12/12/19 14:59 12/12/19 17:29 12/12/19 19:57 Temperature 37.0 C 36.6 C Pulse Rate 84 88 Respiratory Rate 16 16 Blood Pressure 188/98 H 150/83 H 153/92 H Pulse Oximetry 95 100 12/13/19 04:24 12/13/19 06:35 Temperature 36.8 C Pulse Rate 78 Respiratory Rate 16 Blood Pressure 175/99 H 127/90 Pulse Oximetry 97 Intake/Output Intake/Output: Intake & Output 12/10/19 12/11/19 12/12/19 12/13/19 23:59 23:59 23:59 23:59 Intake Total 2746 2550 1950 1150 Output Total 215 8604 087 6871 Balance 2531 1020 1400 -650 Meds/Results Medications: Active Medications Generic Name Dose Route Start Last Admin Trade Name Freq PRN Reason Stop Dose Admin Hydrocodone Bitart/Acetaminophen 1 tab 12/13/19 08:00 Hydrocodone/Acetaminophen (*Crx) 5-325 Mg Tablet PO Q4H PRN Pain Rated 7-10 Hydralazine HCl 10 mg 12/11/19 10:32 12/13/19 04:29 Hydralazine Hcl 20 Mg/Ml Vial IV PUSH 10 mg Q6H PRN Administration Blood Pressure - High Levofloxacin/Dextrose 750 mg in 150 mls @ 100 mls/hr 12/11/19 03:00 12/13/19 04:15 Levaquin 750 Mg/D5w 150 Ml IVPB Infused Q24H ROBERTO Infusion Metronidazole 500 mg in 100 mls @ 100 mls/hr 12/10/19 10:00 12/13/19 05:33 Flagyl 500 Mg/Iso Soln 100 Ml IVPB Infused Q6H ROBERTO Infusion Lactated Ringer's 1,000 mls @ 100 mls/hr 12/10/19 12:35 12/13/19 04:24 Lr - Lactated Ringers Iv IV CONT 100 mls/hr .Q10H ROBERTO Infusion Acetaminophen 1,000 mg in 100 mls @ 400 mls/hr 12/12/19 15:20 12/12/19 15:38 Ofirmev 1,000 Mg Ivpb IVPB 12/13/19 15:21 Infused Q6H PRN Infusion Pain Rated 4-6 Lisinopril 20 mg 12/13/19 09:00 Lisinopril 20 Mg Tablet PO QAM [facility] Meloxicam 15 mg 12/14/19 08:00 Meloxicam 7.5 Mg Tablet PO DAILY@0800 [facility] Ondansetron HCl 4 mg 12/10/19 12:32 12/13/19 04:49 Ondansetron Inj 4 Mg/2 Ml Vial IV PUSH 4 mg Q4H PRN Administration Nausea And Vomiting Pantoprazole Sodium 40 mg 12/10/19 09:00 12/12/19 21:42 Pantoprazole Sodium Iv 40 Mg Vial IV PUSH 40 mg Q12HR ROBERTO Administration Radiology Results: ITS Impressions Abdomen/Pelvis CT 12/10/19 08:15 IMPRESSION: 1. Free intraperitoneal air and gas, suspicious for perforated viscus. No definite perforation site not identified. Upper GI Series 12/12/19 13:32 IMPRESSION: 1. No evidence of contrast leak.
[2019-12-13] MEDS: lisinopriL 20 MG TABLET PO (08:54)
[2019-12-13] MEDS: MELOXICAM 7.5 MG TABLET 15 MG PO (08:54)
[2019-12-13] MEDS: HYDROcodone/acetaminophen (*CRX) 5-325 MG TABLET 1 TAB PO ×3 (08:54→18:00)
[2019-12-13] MEDS: PANTOPRAZOLE SODIUM IV 40 MG VIAL IV PUSH (08:55)
[2019-12-13] MEDS: SUCRALFATE SUSP 100 MG/ML 10 ML UDC 1000 MG PO ×2 (11:50→16:22)
[2019-12-13] MEDS: LACTATED RINGERS 1,000 ML 100 ML IV CONT ×2 (11:56→13:25)
[2019-12-13 14:00] VITALS: BP 131/69; PULSE 84; RESP 16; TEMP 36.6; O2SAT 100
--- NOTE | 2019-12-13 17:10 | PM.DS ---
DS: Admitting Diagnosis Admitting Diagnosis Admitting Diagnosis: Perforated Abdominal Viscous DS: Discharge Diagnosis Discharge Diagnosis (1) Perforated gastric ulcer: Code(s): K25.5 - Chronic or unspecified gastric ulcer with perforation Status: Acute Assessment and Plan: s/p repair, doing well, home c wound care instructions, po analgesia, PPI, carafate, f/u 1 wk for staple removal (2) Essential (primary) hypertension: Code(s): I10 - Essential (primary) hypertension Status: Chronic Assessment and Plan: stable, resume home meds, f/u c PCP DS: Summary Hospital Course Reason for hospitalization: perforated viscus Hospital Course: Pt presented to ED c perforated viscus, peritonitis. Pt emergently taken to OR for ex lap, repair of perforated gastric ulcer. Please see op report for full details. Pt transferred to floor post c NG tube, bowel rest. Pt did very well and on POD 2 had UGI showing no leak. Pt had NG removed and slowly started on diet. Pt did well c diet and will be dc'd home at this time. Pt will f/u 1 wk for stable removal. Pt home c po analgesia, PPI, carafate. Time spent discussing smoking cessation with patient: 3 to 10 minutes Status at Discharge Functional status at discharge: independent ambulation Overall status at discharge: patient is progressing back to baseline Time Spent with Patient Time attestation: Total time spent providing and/or coordinating discharge services: Time spent: Less than 30 minutes Exam Const: General: healthy appearing, comfortable and no acute distress Orientation/consciousness: patient oriented x3 Resp: Auscultation: clear to auscultation bilaterally Cardio: Rate: regular rate Rhythm: regular rhythm GI: Inspection: normal to inspection, distended and incision GI Palp: Yes abdominal tenderness, Yes Soft to palpation, No Firmness to palpation present (GI), No Tenderness to palpation present (GI), No Guarding due to palpation present (GI) and No Rigid due to palpation Discharge Plan Discharge Attending physician on discharge: Ania Simons Consulting providers: Pancho Fiore ; Gregory Dickson ; Hector Rosa Discharging Clinician: Ania Simons Anticipated Discharge Date/Time: 12/13/19 17:03 Patient Disposition: Home, Self-Care Activity: may shower and no straining Diet: as tolerated Wound Care Instructions: incision open to air Discharge Instructions: no lifting >20lbs x 6 weeks ok to shower over dale Patient Instructions: Antibiotic Form, Ondansetron (By injection), Hydralazine (By injection), How to Stop Smoking (DC), Peptic Ulcer (DC), Heart Healthy Diet (DC), Pain Management (DC) Stand Alone Forms: General Discharge Information Follow-up/Referrals: Ania Simons MD [Physician] - 1 Week Discharge Medications: New hydrocodone-acetaminophen 5-325 mg Tablet 1 tab PO Q4H PRN (Reason: Pain Rated 7-10) Qty: 30 RF: 0 sucralfate 100 mg/mL Suspension 1,000 mg PO ACHS 30 Days Qty: 1200 RF: 0 pantoprazole [Protonix] 40 mg tablet,delayed release (DR/EC) 40 mg PO BID Qty: 60 RF: 1 Continued meloxicam [Mobic] 15 mg tablet 15 mg PO DAILY Qty: 30 RF: 1 hydroxyzine HCl 25 mg tablet 25 mg PO BID PRN (Reason: anxiety) Qty: 60 RF: 0 trazodone 50 mg tablet 25 mg PO .QHS Qty: 30 RF: 1 lisinopril 20 mg tablet 20 mg PO DAILY Qty: 90 RF: 1 Date of admission: 12/10/19 05:21 Primary Care Provider: Karan Logan Admitting Provider: Ania Simons Attending physician on admission: Ania Simons Condition: Serious
== END 2019-12-13 18:20 | disposition home or self-care (01) | DRG 328 ==
LOC: ANHED 12-10 00:03 → ANHSURGERY 12-10 03:08 → ANH3MED 12-10 05:50
PROVIDERS: Admitting Provider Surgery; Emergency Provider Emergency Medicine; PCP Family Medicine; Visit Provider Surgery
PROC: 0DU607Z Supplement Stomach with Autologous Tissue Substitute, Open Approach (ICD-10-PCS; CPT 49000; principal; 2019-12-10 03:30)
DX: K25.5 Chronic or unspecified gastric ulcer with perforation (principal); F17.210 Nicotine dependence, cigarettes, uncomplicated; I10 Essential (primary) hypertension; Z88.0 Allergy status to penicillin
CPT/HCPCS: 36415; 74177; 74240; 80048; 80053; 81003; 83690; 84484; 85025; 85027; 85610; 85730; 86850; 86900; 86901; 93005; 96361; 96365; 96372; 96375; 96376; 99285; A9270; C9113; J0131; J0330; J0360; J0500; J1100; J1956; J2250; J2270; J2405; J2704; J2710; J3010; J3480; J7030; J7120; Q9967; Q9968

== ENCOUNTER 2020-02-07 00:40 | Outpatient (CLI) | payer OTHER, SELFPAY ==
[2020-02-07 18:51] LABS: SARS-CoV-2 RNA PCR Negative
== END 2020-02-07 00:41 | disposition home or self-care (01) ==
LOC: ANHCOVIDDT 00:40
PROVIDERS: PCP Family Medicine; Visit Provider Internal Medicine Gastroenterology
DX: Z01.812 Encounter for preprocedural laboratory examination (principal); Z20.828 Contact with and (suspected) exposure to other viral communicable diseases
CPT/HCPCS: 87635; C9803; U0003

== ENCOUNTER 2020-02-08 10:05 | Outpatient (CLI) | payer OTHER, SELFPAY ==
--- NOTE | ~2020-02-08 | MM_ITS ---
EXAMINATION: MM screening meka BI w jaden HISTORY: Screening TECHNIQUE: Craniocaudal and mediolateral oblique 3-D tomosynthesis images were obtained and synthetic 2-D images were generated. CAD analysis was submitted and interpreted. COMPARISON: No prior mammogram is available for comparison at this institution. BREAST PARENCHYMAL COMPOSITION: There are scattered areas of fibroglandular density. FINDINGS: There is no evidence of suspicious mass, calcification, or architectural distortion to sugg est malignancy in either breast. There has been no suspicious interval change. IMPRESSION: 1. No mammographic evidence of malignancy. 2. Recommend routine screening mammography in one year. BI-RADS Category 1: Negative Reviewed, dictated and finalized at location A. [employer]
== END 2020-02-08 10:06 | disposition home or self-care (01) ==
LOC: ANHIMG 10:07
PROVIDERS: PCP Family Medicine; Visit Provider Nurse Practitioner Family
DX: Z12.31 Encounter for screening mammogram for malignant neoplasm of breast (principal)
CPT/HCPCS: 77063; 77067

== ENCOUNTER 2020-02-10 01:15 | Day surgery (SDC) | payer OTHER, SELFPAY ==
[2020-02-01 14:18] VITALS: BMI 23.1
[2020-02-10 06:09] VITALS: BP 143/85; PULSE 74; RESP 20; TEMP 36.9; O2SAT 100
[2020-02-10] MEDS: LACTATED RINGERS 1,000 ML 150 ML IV CONT (06:29)
--- NOTE | 2020-02-10 07:11 | P.PNAN_ITS ---
Anes - Initial Pre Proc Eval Procedure: Operation Date: 02/10/20 07:30 Proposed Procedures p Esophagogastroduodenoscopy - Den Han MD Date/Time: 02/10/20 07:11 Surgeon: Den Han MD Pre Op Diagnosis: Hx of Gastric Ulcer Patient Data Age: 54 Gender: F Height: 5 ft 5 in Weight: 67.9 kg Last Vital Signs Temp 98.5 F 02/10/20 06:09 Pulse 74 02/10/20 06:09 Resp 20 02/10/20 06:09 BP 143/85 H 02/10/20 06:09 Pulse Ox 100 02/10/20 06:09 Allergies Allergy/AdvReac Type Severity Reaction Status Date / Time Penicillins Allergy Unknown Vomiting Verified 02/10/20 06:08 Home Medications Medication Instructions Recorded Confirmed Type lisinopril 20 mg tablet 20 mg PO DAILY #90 tablet 09/30/19 02/01/20 Rx trazodone 50 mg tablet 50 mg PO .QHS #30 tablet 01/09/20 02/01/20 Rx omeprazole 20 mg PO DAILY 02/01/20 02/01/20 History Patient hx anesthesia problems: none Family hx anesthesia problems: none PMFSH Past Medical History Medical History Anxiety Arthritis of carpometacarpal (CMC) joint of left thumb BMI 22.0-22.9, adult BMI 23.0-23.9, adult Essential (primary) hypertension Insomnia Osteoarthritis of right knee Other chronic pain Tobacco use Surgical History Surgical History H/O elbow surgery 2011 H/O exploratory laparotomy : repair gastric ulcer w/ omental patch H/O hysterectomy for benign disease 2007 Family History Family History Father Hypertension Social History Social History Smoking packs per day: 0.5 Smoking cigarettes per day: 10.0 Years smoked: 30 Smoking pack-years: 15.00 Smoking status: Current every day smoker Tobacco type: cigarettes Second hand tobacco smoke exposure: Yes Alcohol intake: current Drinks per week: 3 Substance use: never 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 Questions were solicited and answers provided to the satisfaction of the patient/family/POA.
--- NOTE | 2020-02-10 07:57 | WPDGICN ---
Assessment and Plan Assessment and plan (1) Perforated gastric ulcer: Qualifiers: Gastric ulcer chronicity: acute Qualified Code(s): K25.1 - Acute gastric ulcer with perforation Code(s): K25.5 - Chronic or unspecified gastric ulcer with perforation Status: Acute Assessment and Plan: Patient has history of perforated gastric ulcer requiring surgery in December 2019. Patient now doing well on omeprazole 20 mg p.o. daily. Plan to avoid nonsteroidal anti-inflammatory agents. Follow-up EGD is advised today 2 months after ulcer. Long-term use proton pump inhibitor may be beneficial for this patient. GI Consult Note Consult date/time: 02/10/20 07:57 HPI: Judy Ribera is a 54 year old female Seen in evaluation at the request of Dr. Karan Logan. Patient has history of gastric ulcer presented with perforation requiring surgery December 10, 2019. She was treated with proton pump inhibitors currently omeprazole 20 mg p.o. daily. She states she no longer has abdominal pain does complain some itching at the skin incision site. Weight appetite bowel movements have returned to normal. She has had no bleeding. Tolerating diet without difficulty. Patient presents today for follow-up EGD to document healing of this ulcer. Review of Systems Review of Systems: All systems reviewed & are unremarkable except as noted in HPI and below PMFSH Past Medical History Medical History Anxiety Arthritis of carpometacarpal (CMC) joint of left thumb BMI 22.0-22.9, adult BMI 23.0-23.9, adult Essential (primary) hypertension Insomnia Osteoarthritis of right knee Other chronic pain Tobacco use Surgical History Surgical History H/O elbow surgery 2011 H/O exploratory laparotomy : repair gastric ulcer w/ omental patch H/O hysterectomy for benign disease 2007 Family History Family History Father Hypertension Social History Social History Smoking packs per day: 0.5 Smoking cigarettes per day: 10.0 Years smoked: 30 Smoking pack-years: 15.00 Smoking status: Current every day smoker Tobacco type: cigarettes Second hand tobacco smoke exposure: Yes Alcohol intake: current Drinks per week: 3 Substance use: never 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[employer] Gender identity (if verbalized by the patient): Female Meds Home Medications and Allergies Home Medications Medication Instructions Recorded Confirmed Type lisinopril 20 mg tablet 20 mg PO DAILY #90 tablet 09/30/19 02/01/20 Rx trazodone 50 mg tablet 50 mg PO .QHS #30 tablet 01/09/20 02/01/20 Rx omeprazole 20 mg PO DAILY 02/01/20 02/01/20 History Allergies Allergy/AdvReac Type Severity Reaction Status Date / Time Penicillins Allergy Unknown Vomiting Verified 02/10/20 06:08 Vital Signs Vital Signs - 24 hr 02/10/20 06:09 Temperature 98.5 F Pulse Rate 74 Respiratory Rate 20 Blood Pressure 143/85 H Pulse Oximetry 100 Exam Narrative: Exam Narrative: Physical exam reveals patient to be alert. Vital signs stable. HEENT exam unremarkable. Patient is anicteric. Lungs are clear to auscultation and percussion. Heart is without murmur or extra sounds. Abdominal exam bowel sounds are present soft nontender with no organomegaly. Digital external rectal exam is normal.
[2020-02-10 08:01] VITALS: BP 99/62; PULSE 72; RESP 29; O2SAT 99
[2020-02-10 08:11] VITALS: BP 124/83; PULSE 72; RESP 18; O2SAT 100
[2020-02-10 08:21] VITALS: BP 133/90; PULSE 67; RESP 20; O2SAT 100
== END 2020-02-10 08:27 | disposition home or self-care (01) ==
PROVIDERS: PCP Family Medicine; Visit Provider Internal Medicine Gastroenterology
PROC: 0DJ08ZZ Inspection of Upper Intestinal Tract, Via Natural or Artificial Opening Endoscopic (ICD-10-PCS; CPT 43235; principal; 2020-02-10 07:30)
DX: Z09 Encounter for follow-up examination after completed treatment for conditions other than malignant neoplasm (principal); Z87.11 Personal history of peptic ulcer disease; F17.210 Nicotine dependence, cigarettes, uncomplicated; F41.9 Anxiety disorder, unspecified; I10 Essential (primary) hypertension; M18.12 Unilateral primary osteoarthritis of first carpometacarpal joint, left hand; M17.11 Unilateral primary osteoarthritis, right knee; G47.00 Insomnia, unspecified
CPT/HCPCS: 43239; 87081; 87635; C9803; J2704; J7120; U0003

== ENCOUNTER → 2020-05-25 00:29 | Outpatient (CLI) | payer OTHER, SELFPAY ==
[2020-05-25 17:45] LABS: SARS-CoV-2 RNA PCR Negative
== END ==
PROVIDERS: PCP Family Medicine; Visit Provider Orthopaedic Surgery
DX: Z01.812 Encounter for preprocedural laboratory examination (principal); Z20.822 Contact with and (suspected) exposure to COVID-19
CPT/HCPCS: C9803; U0003; U0005

== ENCOUNTER 2020-05-28 01:11 | Day surgery (SDC) | payer OTHER, SELFPAY ==
[2020-05-16 10:35] VITALS: BMI 23.8
[2020-05-28] VITALS (7 sets, daily range): BP systolic 107–142; BP diastolic 70–80; PULSE 77–84; RESP 18–22; TEMP 36.5–37.1; O2SAT 93–100
--- NOTE | ~2020-05-28 | XR_ITS ---
EXAMINATION: XR hand LT 2V DATE: 05/28/2020 10:22 INDICATION: Postoperative evaluation following trapezium resection TECHNIQUE: Posteroanterior and lateral views of the left hand were obtained. COMPARISON: None. FINDINGS: Diffuse osteopenia. Postoperative change of first carpal metacarpal suspension arthroplasty with rese ction of the trapezium. Alignment remains near-anatomic. Minimal osteoarthritis at the interphalangea l joints. No fractures. Expected small amount of soft tissue gas at the operative bed. Fiberglas spli nting material along the radial aspect of the left hand, wrist and distal forearm. IMPRESSION: 1. Expected appearance post trapezium resection for first carpal metacarpal suspension arthroplasty. See procedure note for further detail. Reviewed, dictated and finalized at location A. IMPRESSION: 1. Expected appearance post trapezium resection for first carpal metacarpal omega pension arthroplasty. See procedure note for further detail.
[2020-05-28] MEDS: ACETAMINOPHEN 500 MG TABLET 1000 MG PO (06:30)
[2020-05-28] MEDS: LACTATED RINGERS 1,000 ML 30 ML IV CONT ×2 (06:50→09:12)
[2020-05-28] MEDS: KETOROLAC 15 MG/ML VIAL (*BKC) IV PUSH (06:50)
--- NOTE | 2020-05-28 06:54 | WPDANESEPPF ---
Anes - Initial Pre Proc Eval Procedure: Operation Date: 05/28/20 07:30 Proposed Procedures p Left Thumb Carpal Metacarpal Suspension Arthroplasty - Odin Gtz MD Date/Time: 05/28/20 06:54 Surgeon: Odin Gtz MD Pre Op Diagnosis: left thumb CMC arthritis Patient Data Age: 54 Gender: F Height: 1.65 m Weight: 65 kg Allergies Allergy/AdvReac Type Severity Reaction Status Date / Time Penicillins Allergy Mild Vomiting Verified 05/28/20 06:20 Home Medications Medication Instructions Recorded Confirmed Type omeprazole 20 mg PO DAILY 02/01/20 05/28/20 History lisinopril 20 mg tablet 20 mg PO DAILY #30 tablet 04/17/20 05/28/20 Rx temazepam [Restoril] 15 mg PO QHS 05/16/20 05/28/20 History Patient hx anesthesia problems: none Family hx anesthesia problems: none PMFSH Past Medical History Medical History Anxiety Arthritis of carpometacarpal (CMC) joint of left thumb BMI 22.0-22.9, adult BMI 23.0-23.9, adult BMI 25.0-25.9,adult Essential (primary) hypertension Insomnia Osteoarthritis of right knee Other chronic pain Tobacco use Surgical History Surgical History H/O elbow surgery 2011 H/O exploratory laparotomy : repair gastric ulcer w/ omental patch H/O hysterectomy for benign disease 2007 Family History Family History Father Hypertension Social History Social History Smoking packs per day: 0.5 Smoking cigarettes per day: 10.0 Years smoked: 30 Smoking pack-years: 15.00 Tobacco type: cigarettes Second hand tobacco smoke exposure: Yes Alcohol intake: current Drinks per week: 3 Substance use: never Substance use type: does not use Living arrangements: with family 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 [employer] Gender identity (if verbalized by the patient): Female Spiritual care concerns: No Anes - Eval Final PreProcedure Day of Procedure 05/28/20 06:54 Patient weight: normal Heart: regular rate and rhythm Lungs: clear to auscultation and normal air movement Airway: Mallampati scale class II Neurological: alert and oriented Last oral intake: >/= 8 hours ASA classification: II Emergent: no Anesthetic plan: proceed Anesthesia type and monitoring: general GIVS and LMA Informed Consent: The patient's anesthetic plan and its attendant risks and benefits were discussed with the patient/family/POA. Questions were solicited and answers provided to the satisfaction of the patient/family/POA.
--- NOTE | 2020-05-28 07:17 | WPDHPUPDATE1 ---
History and Physical Update Update Date/Time: 05/28/20 07:17 History and Physical has been reviewed, including an updated exam of the patient. There are NO changes in the patient's condition. Risks, benefits, and alternatives have been discussed and questions answered. Patient agrees to proceed with procedure.
[2020-05-28] MEDS: ceFAZolin 2 GM/D5W 50 ML 2 GM/50 ML BAG IVPB (07:36)
--- NOTE | 2020-05-28 07:36 | WPDANESPNB ---
Anes - Peripheral Nerve Block Date/Time: 05/28/20 07:36 I have discussed with the patient/family/POA the placement of a peripheral nerve block for post-operative pain management, including associated risks, benefits, complications, and side effects. Alternative methods of post-operative analgesia were detailed. Questions were solicited and answers provided to the satisfaction of the patient/family/POA. Time-Out: A pre-procedural Time-Out was completed immediately before starting the procedure and confirmed: Patient Identification, Site, Procedure, Patient Position and the Availability of Requisite Equipment. Clinical Indications: Acute post-operative pain management requested by the operative surgeon. Nerve Block Insertion Note Anes-nerve block: supraclavicular left Patient position: supine Skin prep: chlorhexidine Needle: 22 gauge, stimulating, insulated echogenic needle. Needle length: 80 mm Technique: ultrasound (in plane) Injectate: bupivacaine 0.5% with epi 5 mcg/ml (20cc) Observations: tolerated well Complications: none Procedure start time:: 725 Procedure end time:: 730
--- NOTE | 2020-05-28 09:24 | PM.PROC ---
Procedure Note - Detailed Date of procedure: 05/28/20 Pre-op diagnosis: left thumb CMC arthritis Post-op diagnosis: same Procedure performed: left thumb CMC suspension arthroplasty Description of procedure: The patient was identified proper site identified. In the preop holding area the anesthesia team performed a left upper extremity block. She was then taken to the operating room transferred to the OR table placing her supine taking care to pad the torso and extremities. After general anesthetic induction and intubation, a nonsterile tourniquet was placed high on the left arm. Left upper extremity was prepped and draped in usual sterile fashion. Extremity was exsanguinated and tourniquet was inflated to 200 mmHg remaining up for approximately 60 minutes. A longitudinal incision was made over the FCR tendon curving radially at the base of the thenar musculature. Subcutaneous tissue bluntly dissected protecting neurovascular structures. A slip of the APL which inserted into the thenar musculature was released and marked for later repair. The thenar musculature was elevated up off of the carpus and the trapezium identified. While protecting the FCR, a trapeziectomy was performed. The a ulnar-sided distally-based 8 cm slip of FCR was then developed hand used to create a sling weaving the tendon slip between the FCR tendon and the APL tendon securing it to itself with 3-0 Ethibond suture. The EPL tendon was advanced on itself and also secured with 3-0 Ethibond suture seating the sling in the trapeziectomy site. This allowed the thumb to sit very nicely in a position of function. The EPB tendon was then reefed also with 3-0 Ethibond taking up the slack in that structure. The wound was irrigated with sterile antibiotic solution. The wrist capsule and thenar musculature were tacked back down with 4-0 Monocryl. The slip of the EPL was reattached to the thenar musculature with 3-0 Ethibond. the wound was irrigated with sterile saline. Skin edges were reapproximated with 4-0 Monocryl and 4- 0 Prolene. Steri-Strips were applied. Sterile dressings applied and the tourniquet was released. Well-padded thumb spica splint was fashioned. The patient tolerated procedure well. She was awakened extubated and taken to recovery area in stable condition. There were no known intraoperative complications. Estimated blood loss was negligible. Perioperative antibiotics were administered. Anesthesia: GLMA and regional Surgeon: Odin Gtz MD Estimated blood loss (mL): 1 Tourniquet time (min): 60 Packing: No Pathology: none sent Complications: No immediate complications Condition: stable Disposition: PACU
== END 2020-05-28 10:51 | disposition home or self-care (01) ==
PROVIDERS: PCP Family Medicine; Visit Provider Orthopaedic Surgery
PROC: (CPT 25447; principal; 2020-05-28 07:30)
DX: M18.12 Unilateral primary osteoarthritis of first carpometacarpal joint, left hand (principal); G89.18 Other acute postprocedural pain; F41.9 Anxiety disorder, unspecified; I10 Essential (primary) hypertension; G47.00 Insomnia, unspecified; F17.210 Nicotine dependence, cigarettes, uncomplicated
CPT/HCPCS: 64415; 25447; 73120; A4565; A9270; C9803; J0690; J1885; J2250; J2405; J2704; J3010; J7120; U0003; U0005

== ENCOUNTER 2020-08-02 15:30 | Outpatient (RCR) | payer OTHER, SELFPAY ==
--- NOTE | 2020-06-22 15:55 | OTOPEVAL ---
OCCUPATIONAL THERAPY EVALUATION 06/22/20 Thank you for referring Judy Ribera to [facility] [place].? The patient is scheduled to be seen for therapy? 1-2x/week for 5 weeks. Due to patient's work schedule, frequency per week is limited some weeks and she may only be seen once. Please review, sign, date and return this plan of care DERREK. I agree with and certify that the following plan of care is medically necessary. Referring Physician Date Referring Provider: Odin Gtz MD *OT Outpatient Evaluation Start: 06/22/20 14:40 Therapy Assessment Status Assessment Status Assessment Status Evaluation Outpatient Past Medical History Past Medical History Source of Past Medical History Recalled from Previous Visit, Confirmed with Patient/Family Neurological History Hx Neurological Disorders No Significant History Cardiovascular History Hx Hypertension Yes Respiratory History Hx Respiratory Disorders No Significant History Gastrointestinal History Hx Gastroesophageal Reflux Disease Yes Hx Ulcer Yes: Perforated Gastric Ulcer with repair 12/2019 Genitourinary History Hx Genitourinary Disorders No Significant History Musculoskeletal History Hx Arthritis Yes Hx Back Pain Yes Hx Fractures Yes: R foot Hx Orthopedic Surgery Yes: Elbow right 2013 Hematological History Hx Hematological Disorders No Significant History Endocrine History Hx Endocrine Disorders No Significant History HEENT History Hx HEENT Disorders No Significant History Integumentary History Hx Skin Disorders No Significant History Reproductive History Hx Hysterectomy Yes Psychosocial History Hx Anxiety Yes: insomia Pain History History of Any Previous or Ongoing No Significant History Instance of Pain Anesthesia History Hx Anesthesia Reactions No Significant History Evaluation Information Problem Diagnosis Left CMC arthroplasty Onset 05/28/20 Subjective Information Since the surgery, patient has Query Text:As Reported By Patient/ been wearing a pre-fabricated Family brace unless she is showering or just resting. Functionally she reports that doing the button on her jeans, unclasping her bra, and pinching to pull up pants is very difficult . Prior Level of Function Activity Level (Last 3 Months) Occupation Work @ [employer] Comments Additional Prior Level of Function Patient has returned to work, Comments but has her coworkers helping
--- NOTE | 2020-07-31 14:12 | PCOTNOTE ---
Patient called & cancelled scheduled appointment this date. No reason given.
--- NOTE | 2020-08-02 16:14 | OTOPEVAL ---
OCCUPATIONAL THERAPY RE-EVALUATION AND DISCHARGE SUMMARY 08/02/20 Patient presents today for OT re-evaluation. This week she is 9 weeks s/p CMC arthroplasty. She has made excellent improvements with ROM in the left wrist and thumb with some residual stiffness in the MCP joint that is restricting composite opposition. She is currently independent with gentle strengthening HEP with putty and is independent with non-medication pain management techniques. No further skilled OT is indicated at this time. Thank you for referring Judy Ribera to [facility] [place][Note 2]. Please review, sign, date and return this discharge summary DERREK. I agree with and certify that the following plan of care is medically necessary. Referring Physician Date Referring Provider: Odin Gtz MD *OT Outpatient Re-Evaluation Start: 06/22/20 14:40 Evaluation Information Problem Diagnosis Left CMC arthroplasty Onset 05/28/20 Additional Evaluation Detail OT initial eval 06/22/20. Patient has participated in 7 tx sessions for right thumb stiffness, weakness, and pain following CMC soft tissue reconstruction. OT has been utilizing paraffin, US, and manual therapy for scar tissue and pain management. She has been working on active, passive, and active-resistive ROM. She has made excellent progress with ROM. She continues to have weakness but understands that this will improve with time and use. Subjective Information Judy reports functional Query Text:As Reported By Patient/ improvements with being able Family to button her jeans, clasp her bra, and pinch to pull up her pants. She continues to have assistance at work with any heavy lifting. She no longer wears an immobilizer on the thumb. She states her pain is constant and she verbalizes a lot of frustration about the continuous pain. Pain Assessment Timing of Pain Assessment Timing of Pain Assessment Re-assessment Pain Scale Pain Scale Used Numeric (1 - 10) Self Report Pain Assessment Left Thumb(s) Reported Pain Level 4 Pain Description Aching,Stabbing Pain Frequency Continuous Other Pain Description Intermittently sharp Lowest Pain Intensity 3 Greatest Pain Intensity 6
== END 2020-08-03 07:30 | disposition home or self-care (01) ==
LOC: ANHOT 15:30
PROVIDERS: PCP Family Medicine; Visit Provider Orthopaedic Surgery
DX: M18.12 Unilateral primary osteoarthritis of first carpometacarpal joint, left hand (principal)
CPT/HCPCS: 97018; 97035; 97110; 97140; 97165

== ENCOUNTER → 2020-10-17 15:19 | Outpatient (CLI) | payer OTHER, SELFPAY ==
--- NOTE | ~2020-10-17 | MR_ITS ---
EXAMINATION: MR hand LT wo con DATE: 10/17/2020 16:14 INDICATION: Left hand pain TECHNIQUE: Magnetic resonance imaging (MRI) of the left hand was performed without intravenous contra st. The field of imaging includes the digits but excludes the proximal carpal row. Sequences included axial, sagittal and coronal T1-weighted FSE and T2-weighted FS FSE. COMPARISON: Left hand radiographs dated 07/10/2020 FINDINGS: Postoperative change of prior first carpal metacarpal suspension arthroplasty with resection of the t rapezium. There is some proximal migration of the base of the first metatarsal into the resection bed of the trapezium. There is prominent thickening of the abductor pollicis longus tendon positioned pa lmar to the site of the trapezium resection bed. There appears to be attenuation of the flexor carpi radialis tendon at the proximal aspect of the axial images the level of the proximal carpal row and r adial styloid process which may be related to prior partial tendon harvest for the suspension arthrop lasty. Remaining flexor and extensor tendons are normal. Bone alignment is otherwise normal. Normal m arrow signal throughout. No fracture or pathologic marrow replacing process. Joint spaces appear norm al with no erosions, joint effusions or tenosynovitis. IMPRESSION: 1. Postoperative changes of trapezium resection and first carpal metacarpal suspension arthroplasty. There appears to been utilization of at least portions of the abductor pollicis longus and flexor car pi radialis tendons as part of the suspension arthroplasty of the anatomy is difficult ascertain. The re appears to be thickening region of goncalves material palmar and slightly proximal to the trapezium rese ction bed which is now partially occupied by the base of the first metacarpal with proximal migration of the first metacarpal which appears progressed since radiographs dated 07/10/2020. Reviewed, dictated and finalized at location A. IMPRESSION: 1. Postoperative changes of trapezium resection and first carpal metacarpal omega pension arthroplasty. There appears to been utilization of at least portions of the abductor pollicis longus and flexor carpi radialis tendons as part of the suspension arthroplasty of the anatomy is difficult ascertain. There appears to be thickening region of goncalves material palmar and slightly proximal to the trape zium resection bed which is now partially occupied by the base of the first met acarpal with proximal migration of the first metacarpal which appears progresse d since radiographs dated 07/10/2020.
== END ==
PROVIDERS: Visit Provider Orthopaedic Surgery
DX: M79.642 Pain in left hand (principal); Z98.890 Other specified postprocedural states
CPT/HCPCS: 73218

== ENCOUNTER 2021-03-09 09:36 | Outpatient (CLI) | payer OTHER, SELFPAY ==
--- NOTE | ~2021-03-09 | MM_ITS ---
EXAMINATION: MM screening meka BI w jaden HISTORY: Screening TECHNIQUE: Craniocaudal and mediolateral oblique 3-D tomosynthesis images were obtained and synthetic 2-D images were generated. CAD analysis was submitted and interpreted. COMPARISON: 02/08/2020 BREAST PARENCHYMAL COMPOSITION: There are scattered areas of fibroglandular density. FINDINGS: There is no evidence of suspicious mass, calcification, or architectural distortion to sugg est malignancy in either breast. There has been no suspicious interval change. IMPRESSION: 1. No mammographic evidence of malignancy. 2. Recommend routine screening mammography in one year. BI-RADS Category 1: Negative Reviewed, dictated and finalized at location A. METRIC ASSISTANT
== END 2021-03-09 09:37 | disposition home or self-care (01) ==
LOC: ANHIMG 09:40
PROVIDERS: PCP Family Medicine; Visit Provider Family Medicine
DX: Z12.31 Encounter for screening mammogram for malignant neoplasm of breast (principal)
CPT/HCPCS: 77063; 77067

== ENCOUNTER 2021-08-14 11:58 | Emergency (ER) | payer OTHER, SELFPAY ==
--- NOTE | ~2021-08-14 | CT_ITS ---
EXAMINATION: CT facial bones wo con DATE: 08/14/2021 12:26 INDICATION: Left head injury. Facial nerve palsy. TECHNIQUE: Computed tomography (CT) of the facial bones and maxillofacial region was performed withou t intravenous contrast. Automated exposure control and iterative reconstruction technique were employ ed. The dose-length product was 269.82 mGy-cm. COMPARISON: None. FINDINGS: The orbits are normal. There is mild mucosal thickening in the paranasal sinuses. There is a 1.6 cm nodule in right thyroid lobe. There is rightward deviation of the nasal septum. No fracture. IMPRESSION: 1. No fracture. 2. 1.6 cm right thyroid nodule. Thyroid ultrasound is recommended for risk stratification. Reviewed, dictated and finalized at location B. IMPRESSION: 1. No fracture. 2. 1.6 cm right thyroid nodule. Thyroid ultrasound is recommended for risk stra tification.
--- NOTE | ~2021-08-14 | CT_ITS ---
EXAMINATION: CT brain wo con DATE: 08/14/2021 12:26 INDICATION: Head trauma TECHNIQUE: Computed tomography (CT) of the head was performed without intravenous contrast. The mA wa s adjusted according to patient size. Iterative reconstruction technique was employed. Exam dose: 60 5.33 mGy-cm total exam DLP. COMPARISON: None FINDINGS: No intracranial mass lesion or hemorrhage or cerebrovascular accident. No midline shift or mass effect effect. Normal ventricular size. There is mild diminished attenuation cerebral white matter, likely due to chronic small vessel ischem ic changes. Mild bilateral carotid siphon internal carotid artery calcifications. No subdural or epidural hematoma. There is soft tissue thickening in the posterior right sphenoid sinus. The paranasal sinuses and mast oid air cells are otherwise unremarkable. No fracture or bone destruction of the cranial vault. IMPRESSION: No acute intracranial abnormality or skull fracture Reviewed, dictated and finalized at Location A. Reviewed, dictated and finalized at location A.
[2021-08-14 12:00] VITALS: BP 174/110; PULSE 88; RESP 20; TEMP 36.8; O2SAT 99
--- NOTE | 2021-08-14 12:22 | ED.HEATRA ---
HPI - Head Injury General Chief complaint: Head Injury Stated complaint: fall x 1 week ago, headache Time Seen by Provider: 08/14/21 12:12 History of Present Illness HPI Narrative: 55-year-old female states that she was drinking a week ago in [place], slipped in the shower and fell and hit the left side of her head, she initially had a mild headache, does not think she lost consciousness, but states that over the last few days she has noticed that her left forehead seem to be paralyzed, and that when she woke up this morning, her left eye felt really dry. No recent fevers or chills, URI, herpes or shingles infection, or tick bites. No eye pain or changes in her vision. She came in because she had a pretty severe headache. Related Data Home Medications Medication Instructions Recorded Confirmed omeprazole 20 mg capsule,delayed 20 mg PO DAILY 02/01/20 08/14/21 release Allergies Allergy/AdvReac Type Severity Reaction Status Date / Time Penicillins Allergy Mild Vomiting Verified 06/11/21 07:37 Review of Systems Review of Systems: CONST: No fever. HEAD: Head trauma EYES: No blurry vision ENT: Cannot raise left eyebrow C/V: No chest pain RESP: No cough GI: No nausea M/S: No joint pain. SKIN: Tiny abrasion left face. NEURO: Paralysis left face without numbness PSYCH: [No depression] [facility] Past Medical History Medical History Allergies Anxiety BMI 22.0-22.9, adult BMI 23.0-23.9, adult BMI 25.0-25.9,adult BMI 26.0-26.9,adult BMI 27.0-27.9,adult Essential (primary) hypertension Insomnia Osteoarthritis of right knee Other chronic pain Tobacco use Surgical History Surgical History Arthritis of carpometacarpal (CMC) joint of left thumb Suspension arthroplasty May 28, 2020 H/O elbow surgery 2011 H/O exploratory laparotomy : repair gastric ulcer w/ omental patch H/O hysterectomy for benign disease 2007 Family History Family History Father Hypertension Mother No problems noted. 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 HEART: [Regular rate and rhythm] ABD: [Soft], [tender to palpation] EXT: Normal range of motion SKIN: Tiny abrasion left face NEURO: [Alert and oriented x 3. No focal sensory deficits, inability to raise left eyebrow, smooth left forehead compared to right.] PSYCH: Normal affect Course Vital Signs Vital signs: Vital Signs Temperature 98.2 F 08/14/21 12:00 Pulse Rate 88 08/14/21 12:00 Respiratory Rate 20 08/14/21 12:00 Blood Pressure 174/110 H 08/14/21 12:00 Pulse Oximetry 99 08/14/21 12:00 Oxygen Delivery Room Air 08/14/21 12:00 Temperature 98.2 F 08/14/21 12:00 Pulse Rate 88 08/14/21 12:00 Respiratory Rate 20 08/14/21 12:00 Blood Pressure 174/110 H 08/14/21 12:00 Pulse Oximetry 99 08/14/21 12:00 Oxygen Delivery Room Air 08/14/21 12:00 MDM - Head Injury MDM Narrative Medical decision making narrative: 55-year-old female presents with left-sided facial paralysis after head trauma 1 week ago, vital signs stable, exam does show paralysis of the left forehead/face without sparing of forehead, and intact sensation,
[2021-08-14] MEDS: diphenhydrAMINE HCl CAP 25 MG CAPSULE PO (12:34)
[2021-08-14] MEDS: METOCLOPRAMIDE HCL INJ 10 MG/2 ML VIAL IM (12:35)
== END 2021-08-14 13:18 | disposition home or self-care (01) ==
PROVIDERS: Emergency Provider Emergency Medicine; PCP Family Medicine
DX: G51.0 Bell's palsy (principal); I10 Essential (primary) hypertension; M17.11 Unilateral primary osteoarthritis, right knee; F17.210 Nicotine dependence, cigarettes, uncomplicated
CPT/HCPCS: 70450; 70486; 96372; 99284; A9270; J2765

== ENCOUNTER 2022-05-07 15:26 | Outpatient (CLI) | payer BC, SELFPAY ==
--- NOTE | ~2022-05-07 | MM_ITS ---
EXAMINATION: MM screening meka BI w jaden HISTORY: Screening mammogram TECHNIQUE: Craniocaudal and mediolateral oblique 3-D tomosynthesis images were obtained and synthetic 2-D images were generated. CAD analysis was submitted and interpreted. COMPARISON: 03/09/2021, 02/08/2020 BREAST PARENCHYMAL COMPOSITION: There are scattered areas of fibroglandular density. FINDINGS: RIGHT BREAST: No suspicious mass, calcification, or architectural distortion are identified to sugges t malignancy. There has been no suspicious interval change. LEFT BREAST: An asymmetry is present in the middle third of the slightly upper breast on the mediolat eral oblique view. IMPRESSION: 1. Left breast asymmetry. 2. Additional mammographic views and possible breast ultrasound are recommended. BI-RADS Category 0: Incomplete: Needs additional imaging evaluation. Reviewed, dictated and finalized at location A. LE SCHOOL LIBRARIAN IMPRESSION: 1. Left breast asymmetry. 2. Additional mammographic views and possible breast ultrasound are recommended . BI-RADS Category 0: Incomplete: Needs additional imaging evaluation.
== END 2022-05-07 15:27 | disposition home or self-care (01) ==
LOC: ANHIMG 15:28
PROVIDERS: PCP Family Medicine; Visit Provider Family Medicine
DX: Z12.31 Encounter for screening mammogram for malignant neoplasm of breast (principal)
CPT/HCPCS: 77063; 77067

== ENCOUNTER 2022-08-05 00:39 | Day surgery (SDC) | payer BC, SELFPAY ==
[2022-07-29 14:35] VITALS: BMI 24.9
--- NOTE | 2022-08-05 08:25 | WPDANESEPPF ---
Anes - Initial Pre Proc Eval Procedure: Operation Date: 08/05/22 09:45 Proposed Procedures p Esophagogastroduodenoscopy - Den Han MD Date/Time: 08/05/22 08:25 Surgeon: Den Han MD Pre Op Diagnosis: GERD Patient Data Age: 56 Gender: F Height: 1.65 m Weight: 68 kg Allergies Allergy/AdvReac Type Severity Reaction Status Date / Time Penicillins AdvReac Mild Vomiting Verified 08/05/22 08:38 Home Medications Medication Instructions Recorded Confirmed Type omeprazole 20 mg capsule,delayed 40 mg PO DAILY 02/01/20 08/05/22 History release amlodipine 5 mg tablet 5 mg PO DAILY #90 tabs 07/03/22 08/05/22 Rx lisinopril 40 mg tablet 40 mg PO DAILY #90 tabs 07/03/22 08/05/22 Rx sertraline 50 mg tablet See Rx Instructions .Route 07/03/22 08/05/22 Rx .COMPLEX #90 tabs zolpidem 5 mg tablet 5 mg PO QHS PRN insomnia #30 tabs 07/07/22 08/05/22 Rx rosuvastatin 20 mg tablet (Crestor) 20 mg PO DAILY #90 tabs 07/21/22 08/05/22 Rx Patient hx anesthesia problems: none Family hx anesthesia problems: none Results Review: All pre-operative results and documents have been reviewed as part of the pre-operative evaluation. [facility] Past Medical History Medical History Allergies Anxiety Essential (primary) hypertension Hyperlipidemia Insomnia Osteoarthritis of right knee Other chronic pain Perforated gastric ulcer Tobacco use Surgical History Surgical History Arthritis of carpometacarpal (CMC) joint of left thumb Suspension arthroplasty May 28, 2020 H/O elbow surgery 2011 H/O exploratory laparotomy : repair gastric ulcer w/ omental patch H/O hand surgery H/O hysterectomy for benign disease 2007 Family History Family History Father Hypertension Hyperlipidemia Mother Alzheimers disease Sibling Hypertension Social History Social History Smoking packs per day: 1 Smoking cigarettes per day: 20.0 Years smoked: 30 Smoking pack-years: 30.00 Smoking status: Current every day smoker Tobacco type: cigarettes Second hand tobacco smoke exposure: Yes Alcohol intake: current Drinks per week: 4 Substance use: never Substance use type: does not use Lack of Transportation: No Lack of Food: Never True Current Housing: I Have Housing Concerned About Future Housing: No Difficulty Paying Gas/Electric Bills: No Difficulty Paying for Meds: No Currently Unemployed: No Education: High School Diploma/GED Difficulty w/ Childcare or Family Care: No Living arrangements: with family Occupation/Education: occupation 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 Informed Consent: The patient's anesthetic plan and its attendant risks and benefits were discussed with the patient/family/POA. Questions were solicited and answers provided to the satisfaction of the patient/family/POA.
[2022-08-05 08:31] VITALS: BMI 26.6
[2022-08-05 08:34] VITALS: BP 177/119; PULSE 73; RESP 18; TEMP 36.6; O2SAT 100
[2022-08-05] MEDS: LACTATED RINGERS 1,000 ML 150 ML IV CONT (08:46)
--- NOTE | 2022-08-05 08:58 | PM.HPGS ---
History of Present Illness History of Present Illness Consent: Risks, benefits, and alternatives have been discussed and questions answered. Patient agrees to proceed with procedure. Chief complaint: GERD Narrative: Judy Ribera is a 56 year old female Presents for EGD. Patient has a history of heartburn in the past. In 2019 she presented with perforated gastric ulcer. Patient underwent surgical repair. Etiology for ulcer was somewhat uncertain. It may have been secondary to NSAIDs. Since that time patient has been maintained on omeprazole 20mg p.o. daily. She has done well until several weeks ago. Two weeks ago dose of omeprazole was increased to40mg p.o. daily. She continues to complain of substernal heartburn presently. She denies any dysphagia. She has had no obvious bleeding. Patient presents today for follow-up EGD because of ongoing heartburn. Patient is felt to have underlying acid reflux. She currently avoids NSAIDs. Family history is noncontributory. Review of Systems Review of Systems: Physical exam reveals patient to be alert. Vital signs stable. HEENT exam is unremarkable. Patient is anicteric. Lungs are clear to auscultation and percussion. Heart is without murmur or extra sounds. Abdomen bowel sounds are present soft nontender with no organomegaly. PMFSH Past Medical History Medical History Allergies Anxiety Essential (primary) hypertension Hyperlipidemia Insomnia Osteoarthritis of right knee Other chronic pain Perforated gastric ulcer Tobacco use Surgical History Surgical History Arthritis of carpometacarpal (CMC) joint of left thumb Suspension arthroplasty May 28, 2020 H/O elbow surgery 2011 H/O exploratory laparotomy : repair gastric ulcer w/ omental patch H/O hand surgery H/O hysterectomy for benign disease 2007 Family History Family History Father Hypertension Hyperlipidemia Mother Alzheimers disease Sibling Hypertension Social History Social History Smoking packs per day: 1 Smoking cigarettes per day: 20.0 Years smoked: 30 Smoking pack-years: 30.00 Smoking status: Current every day smoker Tobacco type: cigarettes Second hand tobacco smoke exposure: Yes Alcohol intake: current Drinks per week: 4 Substance use: never Substance use type: does not use Lack of Transportation: No Lack of Food: Never True Current Housing: I Have Housing Concerned About Future Housing: No Difficulty Paying Gas/Electric Bills: No Difficulty Paying for Meds: No Currently Unemployed: No Education: High School Diploma/GED Difficulty w/ Childcare or Family Care: No Living arrangements: with family Occupation/Education: occupation 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 Gender identity (if verbalized by the patient): Female Spiritual care concerns: No Meds Home Medications and Allergies Home Medications Medication Instructions Recorded Confirmed Type omeprazole 20 mg capsule,delayed 40 mg PO DAILY 02/01/20 08/05/22 History release amlodipine 5 mg tablet 5 mg PO DAILY #90 tabs 07/03/22 08/05/22 Rx lisinopril 40 mg tablet 40 mg PO DAILY #90 tabs 07/03/22 08/05/22 Rx sertraline 50 mg tablet See Rx Instructions .Route 07/03/22 08/05/22 Rx .COMPLEX #90 tabs zolpidem 5 mg tablet 5 mg PO QHS PRN insomnia #30 tabs 07/07/22 08/05/22 Rx rosuvastatin 20 mg tablet (Crestor) 20 mg PO DAILY #90 tabs 07/21/22 08/05/22 Rx Allergies Allergy/AdvReac Type Severity Reaction Status Date / Time Penicillins AdvReac Mild Vomiting Verified 08/05/22 08:38 Vital Signs Vital Signs - 24 hr 08/05/22 08:34 Temperature 97.8 F Pulse Rate 73 Respiratory Rate 18 Blood Pressure 177/119 H Pulse Oximetry 100 Oxygen Delivery Room Air
[2022-08-05 09:02] VITALS: BP 149/89; PULSE 73; RESP 18; TEMP 36.6; O2SAT 100
[2022-08-05 09:39] VITALS: BP 111/73; PULSE 74; RESP 20; O2SAT 98
[2022-08-05 09:49] VITALS: BP 137/87; PULSE 68; RESP 20; O2SAT 99
[2022-08-05 09:59] VITALS: BP 140/90; PULSE 66; RESP 18; O2SAT 100
== END 2022-08-05 10:10 | disposition home or self-care (01) ==
PROVIDERS: PCP Family Medicine; Visit Provider Internal Medicine Gastroenterology
PROC: 0DJ08ZZ Inspection of Upper Intestinal Tract, Via Natural or Artificial Opening Endoscopic (ICD-10-PCS; CPT 43235; principal; 2022-08-05 09:45)
DX: K21.9 Gastro-esophageal reflux disease without esophagitis (principal); Z87.11 Personal history of peptic ulcer disease; I10 Essential (primary) hypertension; E78.5 Hyperlipidemia, unspecified; F41.9 Anxiety disorder, unspecified; F17.210 Nicotine dependence, cigarettes, uncomplicated
CPT/HCPCS: 43239; 87081; J2704; J7120

== ENCOUNTER 2023-05-12 15:49 | Outpatient (CLI) | payer BC, SELFPAY ==
--- NOTE | ~2023-05-12 | MM_ITS ---
EXAMINATION: MM screening meka BI w jaden HISTORY: Screening mammogram TECHNIQUE: Craniocaudal and mediolateral oblique 3-D tomosynthesis images were obtained and synthetic 2-D images were generated. CAD analysis was submitted and interpreted. COMPARISON: 04/2022, 03/09/2021, 02/04/2020 bilateral screening mammogram examinations BREAST PARENCHYMAL COMPOSITION: There are scattered areas of fibroglandular density. FINDINGS: Small circumscribed opacities in the posterior upper outer quadrant of the left breast are consistent with small benign lymph nodes. There is no evidence of suspicious mass, calcification, or architectural distortion to suggest malignancy in either breast. There has been no suspicious interva l change. IMPRESSION: 1. No mammographic evidence of malignancy. 2. Recommend routine screening mammography in one year. BI-RADS Category 2: Benign finding(s). Reviewed, dictated and finalized at location A.
== END 2023-05-12 15:50 | disposition home or self-care (01) ==
PROVIDERS: PCP Family Medicine; Visit Provider Physician Assistant Medical
DX: Z12.31 Encounter for screening mammogram for malignant neoplasm of breast (principal)
CPT/HCPCS: 77063; 77067

== ENCOUNTER 2024-05-12 16:21 | Outpatient (CLI) | payer BC, SELFPAY ==
--- NOTE | ~2024-05-12 | MM_ITS ---
EXAMINATION: MM screening meka BI w jaden HISTORY: Screening mammogram TECHNIQUE: Craniocaudal and mediolateral oblique 3-D tomosynthesis images were obtained and synthetic 2-D images were generated. CAD analysis was submitted and interpreted. COMPARISON: 05/12/2023, 05/07/2022, 03/09/2021 BREAST PARENCHYMAL COMPOSITION:Not Dense. There are scattered areas of fibroglandular density. FINDINGS: No suspicious mass, calcification, or architectural distortion are identified in either bernardo ast to suggest malignancy. There has been no suspicious interval change. IMPRESSION: No mammographic evidence of malignancy. Recommend routine screening mammography in one year. BI-RADS Category 1: Negative Reviewed, dictated and finalized at location .
--- OUTSIDE RECORDS SUMMARY | 2024-05-12 17:35 | XMS_ITS | Referral Summary ---
Author Organization [address] Address [address] [place] [address] Care Team Providers Care Etch Operator [employer] Wafers Name Role Phone Karan Logan MD Primary Care Provider [phone] Allergies Active Allergy Reactions Criticality Noted Date Comments Penicillins Hives,Nausea & Vomit ing,Shortness of breath High 11/24/2020 Medications omeprazole (PriLOSEC) 10 mg capsule Take 10 mg by mouth every morning 12/23/2019 Active lisinopriL (PRINIVIL,ZESTR IL) 20 mg tablet Take 20 mg by mouth every morning 10/16/2020 Active fexofenadine (ERIN) 180 mg tablet Take 180 mg by mouth every morning Active multivitamin capsule Take 1 capsule by mouth every morning Active calcium carb/vit D3/minerals (CALCIUM-VITAMI N D ORAL) Take 1 tablet by mouth every morning Active cyclobenzaprine (FLEXERIL) 10 mg tablet Take 1 tablet (10 mg total) by mouth 3 (three) times a day as needed for muscle spasms 20 tablet 12/10/2020 Active cyclobenzaprine (FLEXERIL) 10 mg tablet Take 1 tablet (10 mg total) by mouth 3 (three) times a day as needed for muscle spasms 30 tablet 12/18/2020 Active HYDROcodone-karine taminophen (NORCO) 5-325 mg per tabletIndicatio ns:Pain Take 1 tablet by mouth every 6 (six) hours as needed for pain 20 tablet 02/04/2023 Active Active Problems Problem Noted Date Diagnosed Date Left hand pain 01/01/2021 Arthritis of carpometacarpal (CMC) joint of left thumb 01/01/2021 Hand pain, left 11/06/2020 Overview (11/06/2020): Added automatically from request for surgery [id number] Mass of hand, left 11/06/2020 Overview (11/06/2020): Added automatically from request for surgery [id number] Social History Tobacco Use Types Packs/Day Years Used Date Smoking Tobacco: Some Days Cigarettes 1 39.2 Started: 1985 Smokeless Tobacco: Never AUDIT-C Answer Date Recorded Q1: How often do you have a drink containing alc ohol? 2-3 times a week 12/06/2020 Q2: How many drinks containi ng alcohol do you have on a typical day when you are drinking? 1 or 2 12/06/2020 Q3: How often do you have si x or more drinks on one occasion? Never 12/06/2020 Comments Unknown Sex and Gender Information Value Date Recorded Sex Assigned at Not on file Legal Sex Female 3:10 PM CDT Gender Identity Female 10/30/2020 12:43 PM CDT Sexual Orientation Not on file Last Filed Vital Signs Vital Sign Reading Time Taken Comments Blood Pressure 153/92 12/06/2020 11:10 AM CDT Pulse 79 12/06/2020 11:10 AM CDT Temperature 36.4 C (97.5 F) 12/06/2020 10:10 AM CDT Respiratory Rate 17 12/06/2020 11:10 AM CDT Oxygen Saturation 98% 12/06/2020 11:10 AM CDT Inhaled Oxygen Concentration - - Weight 63.5 kg (140 lb) 11/24/2020 3:20 PM CDT Height 165.1 cm (5' 5 ) 11/24/2020 3:20 PM CDT Body Mass Index 23.3 11/24/2020 3:20 PM CDT Plan of Treatment Not on file Medical Devices Implanted Type Area Videotape Editor Device Identifier Shelf Expiration Date Model / Serial / Lot Depuy Mitek [id number] Quickanchor Plus Ethibond 2-0 V-5 Mini [place] Suture - [id number] - [id number] Implanted:Qty: 1 on 12/06/2020 by Cheryl Gallo MD PhD at [facility] Other - see comments Left: Wrist Depuy Mitek 08/29/2025 [id number] / [id number] / [id number] Description:Suture [place] [employer] [id number] Lina .45in 9in 1 [place] Orthopedic Wire Fixation - [id number] Implanted:Qty: 1 on 12/06/2020 by Cheryl Gallo MD PhD at [facility] Left: Wrist [employer] [id number] NS / / Insurance [facility] CHOICE [facility] BLUE ACCESS OOS BLUE ACCESS OOS Care Teams 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
--- OUTSIDE RECORDS SUMMARY | 2024-05-12 17:35 | XMS_ITS | Clinical Summary ---
Author Organization [address] Address [address] [place] [address] Care Team Providers Care Software Implementation Project Manager Name Role Phone Karan Logan MD Primary Care Provider [phone] Allergies Active Allergy Reactions Criticality Noted Date [...] (11/06/2020): Added automatically from request for surgery [id number] Mass of hand, left 11/06/2020 Overview (11/06/2020): Added automatically from request for surgery [id number] Surgical History Surgery Date Site/Laterality Comments HAND SURGERY 04/30/2020 - 05/30/2020 Left ABDOMINAL SURGERY 03/02/2019 - 03/01/2020 bleeding ulcer ELBOW SURGERY 03/02/2015 - 03/01/2016 Right HYSTERECTOMY 03/02/1993 - 03/01/1994 partial Social History Tobacco Use Types Packs/Day Years [...] PM CDT Sexual Orientation Not on file Obstetrics History Last Filed Vital Signs Vital Sign Reading [...] 11/24/2020 3:20 PM CDT Plan of Treatment Health Maintenance Due Date Last Done Comments Breast Cancer Screening-Mammogram 1965 Colon Cancer Screening-Colonoscopy 1965 Depression Screening 1965 Hepatitis C Screening 1965 Hepatitis B Screening 01/01/1984 Regular Well Visit/Exam 18-64 01/01/1984 Pneumococcal vaccine <65 (1 of 2 - PCV) 1984 Zoster Vaccine (1 of 2) 01/01/2016 DTaP/Tdap/Td Vaccine (2 - Td or Tdap) 07/31/201803/2008 Influenza Vaccine (#1) 2023 Medical Devices Implanted Type Area Youth Nutritional Monitor Device Identifier Shelf Expiration Date Model / Serial / Lot Depuy Mitek [id number] Quickanchor Plus Ethibond 2-0 V-5 Mini [place] Suture - [id number] - [id number] Implanted:Qty: 1 on 12/06/2020 by Cheryl Glalo MD PhD at [facility] Other - see comments Left: Wrist Depuy Mitek 08/29/[id number] / [id number] / [id number] Description:Suture [place] [employer] [id number] Lina .45in 9in 1 [place] Orthopedic Wire Fixation - [id number] Implanted:Qty: 1 on 12/06/2020 by Cheryl Gallo MD PhD at [facility] Left: Wrist [employer] [id number] NS / / Insurance [facility] H[facility] ACCESS CHOICE [facility] HMO/PPO Address: [facility] [id number] [place] [address] ME911 OOS ME911 OOS Member Subscriber Plan / Payer (Ef fective 2022-Present) Name:Bacilio Juyd Relation to Subscriber:Self Name:Judy Ribera Payer ID:[id number] (NAIC) Type:BC ALLIANCE Address: [facility] [id number] [place] [id number] Care Teams Software Implementation Project Manager Relationship Specialty Start Date End Date Karan Logan MD PCP - General Family Medicine 10/11/20
--- OUTSIDE RECORDS SUMMARY | 2024-05-12 17:35 | XMS_ITS | Data Portability ---
Author Organization [place] [facility], Main Office Address [address] [place] [address] Care Team Providers Care Refining Machine Operator Name Role Phone ERIK SORIA Primary Care Provider ERIK SORIA Referring Provider Assessment Encounter Date Assessment Date Assessment LastModified by Organization Details LastModified Time 01/01/2023 01/01/2023 Impression: 2. Patient is had a grade 1 sprain of the medial collateral ligament left knee. she has no effusion full range of motion normal stability. She does have pre-existing moderate patellofemoral arthritis left knee which was likely exacerbated by her hyperflexion occurred with her fall. We will start out with the trial of ibuprofen and Tylenol for pain. This does not give her adequate relief in her knee we can give her cortisone injection. 2. Patient hasA significant contusion to the medial aspect of her lower left leg. I suspect that this toward the saphenous vein and this caused an underlying hematoma which then infused and just recently she has developed blister in this area. She can leave a blister intact. If it does rupture she can apply bacitracin ointment or Silvadene cream to the area. I have prescribed Silvadene cream so she has it on hand she can apply with a Q-tip blister pops. Her maximum pain relief we will try ibuprofen 800 mg every 8 hours and Tylenol 1000 mg every 6 hours. Once her symptoms start to improve she can gradually wean off these medications. I will see her back in 1 month to assess her progress. If any change in the 5 she will call. 30 minutes were spent total care this patient more than half the time spent in [id number] care. [email or web address] Not available 01/25/2023 16:32:39 Plan of Treatment Reminders Order Date Submit Date Provider Last Modified By Organization Details Last Modified Time Details Appointments None recorded. Lab None recorded. Referral None recorded. Procedures None recorded. Surgeries None recorded. Imaging XR, knee 2022 023 [email or web address] [facility], [address], [place], [address], 3 09:29:01 Medication Orders Silvadene 1 % topical cream 2022 023 [email or web address] [id number], [address], [place], [address], 3 13:54:27 Patient TargetsNo targets recorded. Patient InstructionsNo instructions recorded. Reason for Referral None Reported. Results Created Date Observation Date Name Description Value Unit Range Abnormal Flag Note LastModifiedBy Organization Detail LastModifiedTime 01/02/20 23 XR, knee No observ ation record ed. [email or web address] [facility] [address] [facility], [place], [address], 01/25/2023 16:29:54 Result Notes None recorded. Problems Name Problem SNOMED Code Status Onset Date Resolution Date Notes Provider Name and Address Organization Details Recorded Time Edema of lower extremity 352097676 Active Not Available [facility] 3 13:12:38 Tobacco user 743743648 Active Not Available [facility] 3 13:12:38 Breast lump present 120640192 Active Not Available [facility] 3 13:12:38 Mammograph y abnormal 994562711 Active Not Available [facility] 3 13:12:38 Insomnia 370083147 Active 2017 Not Available [facility] 3 13:12:38 Localized, primary osteoarthr itis of the hand 965399311 Active Not Available [facility] 3 13:12:38 Lateral epicondyli tis 111491207 Active Not Available [facility] 3 13:12:39 Closed fracture metatarsal base 609152878 Active Not Available [facility] 3 13:12:39 Low back pain 571878907 Active Not Available [facility] 3 13:12:39 Lesion of ulnar nerve 160007638 Active Not Available [facility] 3 13:12:39 Closed fracture of metatarsal bone 89441119 Active Not Available [facility] 3 13:12:39 Osteoarthr itis 003037991 Active Not Available [facility] 3 13:12:39 Sprain of foot 06264695 Active Not Available [facility] 3 13:12:39 Essential hypertensi on 68921302 Active Not Available [facility] 3 13:12:39 Pain in elbow 75765826 Active Not Available [facility] 3 13:12:39 Pain of left knee joint 7604423009502 07 Active 2022 JOSEPH Mendoza, [employer] 3 09:58:13 Problem Notes None recorded. Procedures Surgical History Date Name Laterality Status Provider Name and Address Organization Details Recorded Time Hand completed JOSPEH Mendoza [employer] 01/01/2023 09:57:48 Imaging Results Imaging Date Name Status LastModified by Organiz ation Details LastModified Time 01/01/2023 XR, knee completed [email or web address] [facility] [address], [place], [address], 01/25/2023 16:29:54 Procedure Notes None recorded. Medical Equipment None Reported. Allergies Allergen ID Allergen Name Allergen Category Reaction Reaction Severity Criticality Documentation Date Start Date Code Code System Note Provider Name and Address Organization Details Recorded Time 58542 Product containin g penicilli n (product) medicatio n Not available Not available Not available 04/30/20222013 68272 8001 SNOMED hives Not Available [facility] 3 13:15:33 Medications Name Sig Start Date Stop Date Status Note LastModified by Organization Details LastModified Time carisoprodo l 350 mg tablet TAKE 1 TABLET BY MOUTH ONCE DAILY AT BEDTIME active Not Available Not Available No t Available cyclobenzap rine 10 mg tablet TK 1 T PO TID PRN 01/20 completed Not Available Not Available Not Available silver sulfadiazin e 1 % topical cream APPLY CREAM WITH Q-TIP ONTO THE AFFECTED AREA(S) ON THE SKIN TWICE DAILY active Not Available Not Available No t Available prednisone 10 mg tablet Take by oral route. take [id number], 5e7ycie, 1z7sxlr active Not Available Not Available No t Available clindamycin HCl 300 mg capsule active Not Available Not Available Not Available azithromyci n 250 mg tablet Take 2 TABLEts the first day then 1/day 04/24 completed Not Available Not Available Not Available ibuprofen 800 mg tablet 02/06 completed Not Available Not Available Not Available fluconazole 150 mg tablet active Not Available Not Available Not Available hydrocodone 5 mg-acetamin ophen 325 mg tablet TAKE 1 TABLET BY MOUTH EVERY 6 HOURS NEEDED FOR PAIN active Not Available Not Available No t Available meloxicam 15 mg tablet TK 1 T PO QD 01/11 completed Not Available Not Available Not Available lisinopril 20 mg tablet TAKE 1 TABLET BY MOUTH ONCE DAILY active Not Available Not Available No t Available clindamycin HCl 150 mg capsule 01/01 completed Not Available Not Available Not Available acetaminoph en 300 mg-codeine 30 mg tablet 01/01 completed Not Available Not Available Not Available amlodipine 5 mg tablet TAKE 1 TABLET BY MOUTH EVERY DAY active Not Available Not Available No t Available hydrocodone 10 mg-acetamin ophen 325 mg tablet TK 1 TO 2 TS PO Q 4 TO 6 H PRN. MAX 5 TS PER DAY. START 7 04/24 completed Not Available Not Available Not Available tramadol 50 mg tablet 01/01 completed Not Available Not Available Not Available meloxicam 7.5 mg tablet TK 1 T PO BID 01/01 completed Not Available Not Available Not Available oxycodone-a cetaminophe n 5 mg-325 mg tablet active Not Available Not Available No t Available lorazepam 0.5 mg tablet active Not Available Not Available Not Available oxycodone-a cetaminophe n 10 mg-325 mg tablet TK 1 T PO Q 6 H PRN 01/20 completed Not Available Not Available Not Available hydrocodone 7.5 mg-acetamin ophen 325 mg tablet TAKE 1-2 TABLETS PO Q 4-6 H FOR BREAKTHRO UGH PAIN 04/24 completed Not Available Not Available Not Available lisinopril 10 mg tablet 01/01 completed Not Available Not Available Not Available sertraline 25 mg tablet active Not Available Not Available Not Available diclofenac sodium 75 mg tablet,dominik yed release 01/01 completed Not Available Not Available Not Available etodolac 400 mg tablet TK 1 T PO BID active Not Available Not Available No t Available mupirocin 2 % topical ointment APPLY TOPICALLY 3 TIMES A DAY active Not Available Not Available No t Available zolpidem 5 mg tablet TAKE 1 TABLET BY MOUTH EVERY DAY AT BEDTIME NEEDED FOR INSOMNIA active Not Available Not Available No t Available lisinopril 10 mg-hydrochl orothiazide 12.5 mg tablet TK 1 T PO QD 01/01 completed Not Available Not Available Not Available ibuprofen 600 mg tablet active Not Available Not Available Not Available oxycodone-a cetaminophe n 7.5 mg-325 mg tablet 01/20 completed Not Available Not Available Not Available levofloxaci n 750 mg tablet TAKE 1 TABLET BY MOUTH EVERY DAY FOR 7 DAYS active Not Available Not Available No t Available zolpidem 10 mg tablet TK 1/2 TO 1 T PO QHS PRN 01/01 completed Not Available Not Available Not Available methylpredn isolone 4 mg tablets in a dose pack 02/06 completed Not Available Not Available Not Available lisinopril 40 mg tablet TAKE 1 TABLET BY MOUTH EVERY DAY active Not Available Not Available No t Available fluticasone propionate 50 mcg/actuati on nasal spray,suspe nsion Bradley 1 spray every day by intranasa l route. 04/24 completed Not Available Not Available Not Available sertraline 50 mg tablet TAKE 1 TABLET BY MOUTH EVERY DAY active Not Available Not Available No t Available rosuvastati n 20 mg tablet active Not Available Not Available Not Available Suprep Bowel Prep Kit 17.5 gram-3.13 gram-1.6 gram oral solution 04/24 completed Not Available Not Available Not Available Vicodin 5 mg-300 mg tablet 01/01 completed Not Available Not Available Not Available Hysingla ER 30 mg tablet, crush resistant, extended release 02/06 completed Not Available Not Available Not Available Vitals Date Recorded Body height Body mass index (BMI) Body weight Provider Name and Address Organization Details Last Updated DateTime 01/01/2023 160.02 cm 29.6 kg/m2 33857.93 g JOSEPH Mendoza [facility] [email or web address] [facility] 01/01/2023 10:01:12 Social History Question Answer Notes LastModified by Organizat ion Details LastModified Time Tobacco Smoking Status Current Every Day Smoker JOSEPH Mendoza null, [facility] [email or web address] [facility] 01/01/2023 09:57:41 What Is Your Level Of Alcohol Consumption? Occasional [email or web address] Information not available 01/01/2023 Sex: Unknown Functional Status None recorded. Mental Status None recorded. Family History Nothing Reported. Medical History No medical history recorded. Gynecological HistoryNo gynecological history recorded. Obstetrics History GPAL:G 0 P 0 0 0 0 Past Encounters Encounter ID Performer Location Encounter Start Date Encounter Closed Date Diagnosis/Indication Diagnosis SNOMED-CT Code Diagnosis ICD10 Code Diagnosis Note [id number] Unruly Gray MD [facility] [address] [place] [address] 01/01/2023 09:34:30 01/26/2023 09:29:00 Pain of left knee joint [id number] 58645 M25.562 Health Concerns Section Related Observation LastModified by Organization Detai ls LastModified Time None Recorded Concern Status LastModified by Organization Details LastModified Time None Recorded Advance Directives Directive None Recorded Payers Encounter Date Sequence Insurance Name Policy Number Policy Olivier Covered Member ID Olivier Member ID Guarantor Name 01/01/2023 1 [employer]: (PPO) [id number] Judy Ribera [id number] Judy S Ribera Notes Date Note Type Note Provider Name and Address Organization Details Recorded Time 01/01/2023 text/html Patient is a 56-year-old female who presents for evaluation of her left knee. Six days ago she fell down some stairs injuring her left knee. She feels that when into valgus and hyperflexion. Prior to this she had no significant knee symptoms. She has had inadequate pain control since this happened. She tried tramadol as needed too nauseated. She complains of 7/10 pain in the medial aspect of her knee and 10/10 pain medial calf. Is the medial calf that is her chief complaint today. Unruly Gray MD [address] [facility], [facility] [address], [place], [address], [place] [facility] 01/25/2023 16:33:08 OBGyn Episode No OBEpisode recorded.
== END 2024-05-12 16:22 | disposition home or self-care (01) ==
PROVIDERS: PCP Family Medicine; Visit Provider Family Medicine
DX: Z12.31 Encounter for screening mammogram for malignant neoplasm of breast (principal)
CPT/HCPCS: 77063; 77067